=== PATIENT | male | born 1935 | race Caucasian/White ===

== ENCOUNTER → 2019-03-13 06:00 | Outpatient (REF) | payer MEDICARE, BC, SELFPAY | LOC: ANHLAB 06:00 | PROVIDERS: PCP Physician Assistant; Visit Provider Nurse Practitioner Family | DX: C44.329 Squamous cell carcinoma of skin of other parts of face (principal) | CPT/HCPCS: 88305; 88331 ==

== ENCOUNTER 2019-09-19 09:40 | Outpatient (CLI) | payer MEDICARE, BC, SELFPAY ==
--- NOTE | ~2019-09-19 | NM_ITS ---
EXAMINATION: NM bone scan whole body DATE: 09/19/2019 12:37 INDICATION: Secondary malignant neoplasm of bone TECHNIQUE: 24.9 mCi Tc-99m HDP was administered intravenously. Delayed whole-body scintigrams were o btained. COMPARISON: Bone scan and CT scan abdomen and pelvis dated 07/27/2018 FINDINGS: No significant interval change in scattered foci of FDG uptake in the thoracic and lumbar spine with large region of increased FDG uptake at the left innominate bone in the ischial and acetabular region s corresponding to multiple mixed lytic and sclerotic bone lesions on prior CT consistent with metast atic disease. Significant decrease in the previously intense uptake associated with a previously suba cute fracture at the anterior left fifth rib. Nearly imperceptible uptake associated with a sclerotic bone lesion at the right femoral neck. Unchanged small focus of increased uptake at the right first or second toes which given location is more likely degenerative in etiology. No new lesions or lesion s with interval significant increase in degree of uptake. IMPRESSION: 1. Stable appearance of multiple lesions with increased uptake in the axial and appendicular skeleton consistent with treated metastatic disease. No evident new or progressive disease. Reviewed, dictated and finalized at location A. IMPRESSION: 1. Stable appearance of multiple lesions with increased uptake in the axial and appendicular skeleton consistent with treated metastatic disease. No evident n ew or progressive disease.
== END 2019-09-19 09:41 | disposition home or self-care (01) ==
PROVIDERS: PCP Physician Assistant; Visit Provider Internal Medicine Hematology & Oncology
DX: C79.51 Secondary malignant neoplasm of bone (principal)
CPT/HCPCS: 78306; A9561

== ENCOUNTER 2020-03-14 17:27 | Inpatient (IN) | payer MEDICARE, BC, SELFPAY ==
[2020-03-14] VITALS (10 sets, daily range): BP systolic 102–125; BP diastolic 68–99; PULSE 62–145; RESP 20–42; TEMP 36.6–37.2; O2SAT 90–95; BMI 23.6
--- NOTE | ~2020-03-14 | CT_ITS ---
EXAMINATION: CT thoracic lumbar wo con EXAM DATE: 03/14/2020 19:06 INDICATION: low back pain, h/o metastatic prostate cancer TECHNIQUE: Spiral CT thoracolumbar spine was performed without contrast. Axial, coronal and sagittal images of the thoracic spine were reviewed. Axial, coronal and sagittal images of the lumbar spine we re reviewed. The dose-length product (DLP) for this examination was 1886.53 mGy-cm. The exposure was tailored according to patient size (auto mA exposure control), and iterative reconstruction (ASIR) w as used as additional dose reduction technique. Correlation is made to lumbar spine MRI 01/27/2018. FINDINGS: THORACIC SPINE: There is scattered osteoblastic disease. Moderate sized thoracic endplate osteophytes , mild to moderate thoracic disc disease. Mild diffuse loss of vertebral body heights. No acute fract ure line identified. No osseous stenosis of the thoracic spinal canal. No evidence of extraosseous ex tension of metastatic disease. Mild diffuse thoracic facet arthropathy. Paraspinal soft tissue is unr emarkable. Bilateral groundglass opacities, could be edema and/or infection. COVID-19 should be exclu ded. LUMBAR SPINE: Scattered osteoblastic disease. There is no evidence of acute lumbar fracture. There is no disc space widening or traumatic vertebral body subluxation suspected. Paraspinal soft tissue is unremarkable. Moderate disc disease at L3-4, mild to moderate at the other lumbar levels. Mild ch ronic appearing compression fractures at L1 and L2. Moderate to severe L4-5 facet arthropathy with 4 mm anterolisthesis at this level. Less arthropathy at the other levels. There is 3 mm retrolisthesis L3 on L4. Mass contiguous to the right internal iliac artery most likely thrombosed aneurysm, correla te with CT abdomen same date. A detailed level by level evaluation of spondylosis can be added as add endum if requested. IMPRESSION: 1. Moderate amount of scattered groundglass opacities, could be acute infection or edema. Clinical c orrelation, recommend excluding COVID-19. 2. Extensive thoracolumbar osteoblastic disease. 3. No acute thoracolumbar findings. Reviewed, dictated and finalized at location A. TRAINER IMPRESSION: 1. Moderate amount of scattered groundglass opacities, could be acute infectio n or edema. Clinical correlation, recommend excluding COVID-19. 2. Extensive thoracolumbar osteoblastic disease. 3. No acute thoracolumbar findings.
--- NOTE | ~2020-03-14 | CT_ITS ---
EXAMINATION: CT brain wo con EXAM DATE: 03/14/2020 19:06 INDICATION: Fever, altered mental status. Metastatic prostate cancer. Low back pain, flank pain. TECHNIQUE: Spiral CT of the head was performed without contrast. Axial, coronal and sagittal images were reviewed. The dose-length product (DLP) for this examination was 681.00 mGy-cm. The exposure w as tailored according to patient size, and iterative reconstruction (ASIR) was used as additional dos e reduction technique. There is no prior study for comparison. FINDINGS: There is no acute intraparenchymal hemorrhage. No evidence of intraparenchymal brain mass lesion. No evidence of acute infarction. Please note that initial head CT has limited sensitivity f or small or acute infarctions. There is mild to moderate periventricular and subcortical hypodensity, nonspecific but probably related to small vessel ischemic disease. There is moderate prominence of the sulci and ventricles related to cerebral atrophy. There is intracranial carotid arterioscleros is. There are no extra-axial collections. There is no mass effect or midline shift. The orbits are unremarkable. Soft tissue is unremarkable. The visualized sinuses and mastoid air cells are well a erated. IMPRESSION: 1. No acute intracranial findings. 2. Chronic age related findings. Reviewed, dictated and finalized at location A. ON BAG SEWER
--- NOTE | ~2020-03-14 | CT_ITS ---
EXAMINATION: CT abdomen pelvis w con EXAM DATE: 03/14/2020 19:06 INDICATION: Flank pain and fever TECHNIQUE: Spiral CT of the abdomen and pelvis was performed following intravenous injection of 100 m L Omnipaque 350. Axial, coronal and sagittal images were reviewed. The dose-length product (DLP) fo r this examination was 1174.83 mGy-cm. The exposure was tailored according to patient size (auto mA exposure control), and iterative reconstruction (ASIR) was used as additional dose reduction techniqu e. Comparison is made to prior examination from 07/27/2018. FINDINGS: There is 2 cm left liver lobe cyst. The liver, spleen, adrenal glands and pancreas are unr emarkable. Gallbladder is unremarkable. No biliary obstruction. Portal and splenic veins are paten t. Kidneys enhance symmetrically. There is no hydronephrosis. Patient has likely had prostatectom y. The bladder is unremarkable. There is no retroperitoneal or pelvic lymphadenopathy. There is moderate scattered arteriosclerotic disease. In the right side of the pelvis contiguous with the inte rnal iliac artery is well-circumscribed heterogeneous masslike region measuring 3.2 cm, unchanged com pared to prior study and most likely a thrombosed aneurysm. Moderate scattered aortoiliac arterial sc lerosis. The appendix is normal. There is small sliding gastroesophageal hiatal hernia. There is moderate sig moid predominant colonic diverticulosis. There is no adjacent inflammatory change to suggest diverti culitis. No free intraperitoneal gas. The heart is normal in size. There are no pericardial or pl eural effusions. Moderate amount of posterior dependent predominant groundglass airspace disease cou ld be infection and/or edema. Clinical correlation. Rather extensive osteoblastic disease without ac [place] fracture suspected. IMPRESSION: 1. Dependent predominant moderate groundglass lung opacities likely infection or edema. Clinical cor relation. Recommend excluding COVID-19. 2. Stable right internal iliac artery aneurysm. 3. Moderate colonic diverticulosis. 4. Small hiatal hernia. 5. Osteoblastic disease. 6. No acute intra-abdominal findings. Reviewed, dictated and finalized at location A. RITY SYSTEMS ENGINEER IMPRESSION: 1. Dependent predominant moderate groundglass lung opacities likely infection or edema. Clinical correlation. Recommend excluding COVID-19. 2. Stable right internal iliac artery aneurysm. 3. Moderate colonic diverticulosis. 4. Small hiatal hernia. 5. Osteoblastic disease. 6. No acute intra-abdominal findings.
--- NOTE | ~2020-03-14 | XR_ITS ---
EXAMINATION: XR chest 2V EXAM DATE: 03/14/2020 19:11 INDICATION: increased weakness X 1 WK,NO HX. TECHNIQUE: Frontal and lateral projections of the chest obtained and reviewed. Comparison is made to prior examination from 05/28/2004. FINDINGS: Moderate amount of bilateral acute airspace disease, could be infection and/or edema. Plea se clinically correlate. The cardiomediastinal silhouette is prominent but magnified on this AP techn ique. There is no pneumothorax suspected. There are no pleural effusions. Scattered osteoblastic di sease. IMPRESSION: Moderate amount of bilateral infection and/or edema, clinical correlation. Reviewed, dictated and finalized at location A. DIRECTOR IMPRESSION: Moderate amount of bilateral infection and/or edema, clinical sonya elation.
--- NOTE | 2020-03-14 18:00 | ECG_ITS ---
Measurements Intervals [place] Rate: 139 P: ID: 0 QRS: -11 QRSD: 206 T: 120 QT: 309 QTc: 471 Interpretive Statements SINUS OR ECTOPIC ATRIAL TACHYCARDIA VENTRICULAR BIGEMINY INCOMPLETE RIGHT BUNDLE BRANCH BLOCK ST-T WAVE ABNORMALITY IN ANTEROLATERAL LEADS- CONSIDER ISCHEMIA BASELINE ARTIFACT- III, AVF ABNORMAL ECG Electronically Signed On 03-15-2020 9:22:15 FOOTWEAR SALES REPRESENTATIVE by Rui Bucio D.O.
[2020-03-14 18:14] LABS: Hematocrit 37.8 % (42.0-52.0); Hemoglobin 13.1 g/dL (14.0-18.0); Immature Granulocyte Absolute 0.01 K/mm3 (0.00-0.031); Immature Granulocyte Percent A 0.2 % (0-0.5); Lymphocytes Absolute Auto 0.82 K/mm3 (0.9-3.2); Lymphocytes Percent Auto 17.7 % (18.3-44.2); Mean Corpuscular HGB Conc 34.7 g/dl (32-36); Mean Corpuscular Hemoglobin 32.5 pg (26-34); Mean Corpuscular Volume 93.8 fl (80-100); Mean Platelet Volume 9.8 fl (7.4-10.4); Monocytes Absolute Auto 0.3 K/mm3 (0.1-0.6); Monocytes Percent Auto 6.7 % (2.6-8.5); Neutrophils Absolute Auto 3.5 K/mm3 (1.3-6.7); Neutrophils Percent Auto 75.4 % (45.5-73.1); Platelet Count Result 145 k/mm3 (150-375); Red Blood Count 4.03 M/mm3 (4.6-6.20); White Blood Count 4.6 K/mm3 (4.5-10.0)
[2020-03-14 18:25] LABS: Alanine Aminotransferase 36 U/L (4-50); Albumin Level 3.9 g/dL (3.5-5.1); Alkaline Phosphatase 53 U/L (38-126); Anion Gap 8 mmol/L (8-16); Aspartate Amino Transferase 79 U/L (17-59); Bilirubin,Total 0.8 mg/dL (0.2-1.3); Blood Urea Nitrogen 19 mg/dL (9-20); Calcium 8.8 mg/dL (8.4-10.2); Carbon Dioxide 33 mmol/L (22-30); Chloride 93 mmol/L (98-107); Estimated CRCL calculation 60 ml/min; Estimated Glomerular Filt Rate > 60; Glucose 111 mg/dL (75-110); Potassium 3.6 mmol/L (3.4-5.0); Sodium 134 mmol/L (137-145)
--- NOTE | 2020-03-14 18:26 | ED.ARRPALP ---
HPI - Arrhythmia/Palpitations General Chief Complaint: Arrhythmia/Palpitations Stated Complaint: increasing weakness Time Seen by Provider: 03/14/20 18:02 History of Present Illness HPI narrative: 84 year old with h/o HTN, prostate cancer currently on chemotherapy who presents to the ED c/o generalized weakness, back pain, confusion. His symptoms have been worsening over about the past 6 days. He has barely been eating and today he was too weak to stand. His reports that he has chronic diarrhea with leakage and this hasn't changed. The patient denies any complaints, although he is confused and unable to provide any significant details. Related Data Home Medications Medication Instructions Recorded Confirmed abiraterone 1,000 mg PO DAILY 02/18/19 03/15/20 calcium carbonate-vitamin D3 1 tablet PO DAILY 02/18/19 03/15/20 hydrochlorothiazide 25 mg PO DAILY 02/18/19 03/15/20 lisinopril 40 mg PO DAILY 02/18/19 03/15/20 potassium chloride 20 meq PO DAILY 02/18/19 03/15/20 prednisone 5 mg PO DAILY 02/18/19 03/15/20 Allergies Allergy/AdvReac Type Severity Reaction Status Date / Time No Known Allergies Allergy Verified 03/15/20 05:31 Review of Systems Review of Systems: ROS unobtainable: Yes unobtainable due to mental status PMFSH Past Medical History Medical History H/O: HTN (hypertension) Prostate cancer Squamous cell carcinoma of skin of left cheek Family History Family History Other Acute myocardial infarction Family history of malignant neoplasm Social History Social History Smoking status: Never smoker Second hand tobacco smoke exposure: No Alcohol intake: current Drinks per week: 2 Substance use: never Substance use type: does not use Gender identity (if verbalized by the patient): Male Spiritual care concerns: No Exam Const: General: alert, confusion and ill appearing acutely and chronically HENMT: Head: no contusions Face and sinus: dry mucous membranes Eyes: Pupils: Equal, round and reactive pupils present Neck: Neck: normal visual inspection Resp: Effort & Inspection: tachypneic Auscultation: clear to auscultation bilaterally Cardio: Rate: tachycardic Rhythm: regular rhythm GI: Other: soft, nontender Skin: Rashes: no rashes Wounds: no wounds Neuro: General: patient oriented x3, moves all extremities and CN's II-XI intact bilaterally Speech: normal speech Extrem: General: normal to inspection Course Vital Signs Vital signs: Vital Signs Temperature 37.2 C 03/14/20 18:10 Pulse Rate 145 H 03/14/20 18:10 Respiratory Rate 31 H 03/14/20 18:10 Blood Pressure 106/72 03/14/20 18:10 Pulse Oximetry 95 03/14/20 18:10 Temperature 36.6 C 03/16/20 12:00 Pulse Rate 56 L 03/16/20 12:00 Respiratory Rate 18 03/16/20 12:00 Blood Pressure 148/63 H 03/16/20 12:00 Pulse Oximetry 92 03/16/20 12:00 MDM - Arrhythmia/Palpitations MDM Narrative Medical decision making narrative: Condition improving with fluids. Imaging suspicious for COVID-19. Differential Diagnosis Differential diagnosis: Likely other (sepsis, dehydration, CVA, UTI, COVID) Lab Data Attestation: I reviewed the patient's lab results. Result diagrams: 03/15/20 06:06 03/16/20 13:00 Labs: Lab Results 03/14/20 03/14/20 03/14/20 Range/Units 18:09 18:09 19:24 WBC 4.6 (4.5-10.0) K/mm3 RBC 4.03 L (4.6-6.20) M/mm3 Hgb 13.1 L (14.0-18.0) g/dL Hct 37.8 L (42.0-52.0) % MCV 93.8 (80-100) fl MCH 32.5 (26-34) pg MCHC 34.7 (32-36) g/dl RDW 13.0 (11.5-14.5) % Plt Count 145 L (150-375) k/mm3 MPV 9.8 (7.4-10.4) fl Immature Gran % (Auto) 0.2 (0-0.5) % Neut % (Auto) 75.4 H (45.5-73.1) % Lymph % (Auto) 17.7 L (18.3-44.2) % [place] % (Au
[2020-03-14] MEDS: SODIUM CHLORIDE 0.9% IV 1,000 ML 999 ML IV CONT (18:30)
--- NOTE | 2020-03-14 18:45 | PC.NURSE ---
Pt to imaging
[2020-03-14 20:07] LABS: Lactic Acid Reflex 2.1 mmol/L (0.7-2.1)
[2020-03-14 20:34] LABS: Add Urine Microscopic? YES; Appearance Urine Clear (Clear); Bilirubin Urine Negative (Negative); Blood Urine 1+ (Negative); Color Urine Straw (Yellow); Glucose Urine UA Negative (Negative); Ketones Urine Negative (Negative); Leukocyte Esterase Ur Negative LEU/UL (Negative); Nitrate Urine Negative (Negative); Protein Urine 1+ mg/dL (Negative); Urobilinogen Urine Negative mg/dL (<2.0); WBC Urine 0-3 /hpf
--- NOTE | 2020-03-14 20:41 | PM.IMHP ---
H&P: HPI History of Present Illness Date/Time: 03/14/20 20:41 Chief complaint: Sepsis, Pneumonia, Suspected COVID-19 Narrative: This is an 84 year old male with known HTN and prostate cancer currently on chemotherapy who presented to the hospital with a complaint of 6 days of generalized weakness, back pain, confusion, and decreased intake of food and fluid. His reports that he saw his PCP this past week but was already having symptoms. His family did visit him recently although none of them are sick. He currently denies any chest pain, palpitations, shortness of breath, cough, abdominal pain, fever, dysuria, hematuria, or lower extremity swelling. His reports that he has chronic diarrhea with leakage and this hasn't changed. He was initially found to be tachycardic on arrival to the ER with HR in the 130s. CT thoracic/abd/pelvis demonstrated a moderate amount of scattered groundglass opacities. CT brain was unremarkable for acute pathology. The patient denies any known COVID-19 sick contacts. His has not had any symptoms yet. The patient has not required any supplemental oxygen and was treated in the ER tonight with IV fluids, IV antibiotics and dexamethasone. We have been asked to admit the patient to the hospital for his acute dehydration. His heart rate has improved significantly with IV fluids. Review of Systems Review of Systems: All systems reviewed & are unremarkable except as noted in HPI and below PMFSH Past Medical History Medical History H/O: HTN (hypertension) Prostate cancer Squamous cell carcinoma of skin of left cheek Family History Family History Other Acute myocardial infarction Family history of malignant neoplasm Social History Social History Smoking status: Never smoker Second hand tobacco smoke exposure: No Alcohol intake: current Drinks per week: 2 Substance use: never Substance use type: does not use Gender identity (if verbalized by the patient): Male Spiritual care concerns: No Comments Past surgical history is reviewed and noncontributory. Meds Home Medications and Allergies Home Medications Medication Instructions Recorded Confirmed Type abiraterone 1,000 mg PO DAILY 02/18/19 03/15/20 History calcium carbonate-vitamin D3 1 tablet PO DAILY 02/18/19 03/15/20 History hydrochlorothiazide 25 mg PO DAILY 02/18/19 03/15/20 History lisinopril 40 mg PO DAILY 02/18/19 03/15/20 History potassium chloride 20 meq PO DAILY 02/18/19 03/15/20 History prednisone 5 mg PO DAILY 02/18/19 03/15/20 History Allergies Allergy/AdvReac Type Severity Reaction Status Date / Time No Known Allergies Allergy Verified 03/15/20 05:31 Vital Signs Vital Signs - 24 hr 03/14/20 18:10 03/14/20 18:16 03/14/20 18:18 Temperature 37.2 C Pulse Rate 145 H 136 H 126 H Respiratory Rate 31 H 42 H 33 H Blood Pressure 106/72 120/78 Pulse Oximetry 95 92 03/14/20 19:12 03/14/20 19:15 03/14/20 19:30 Temperature Pulse Rate 123 H 124 H 128 H Respiratory Rate 24 H 35 H 29 H Blood Pressure Pulse Oximetry 91 90 03/14/20 19:45 Temperature Pulse Rate 130 H Respiratory Rate 30 H Blood Pressure Pulse Oximetry Exam Const: General: cooperative, alert, awake and ill appearing Nutritional Appearance: well nourished Orientation/consciousness: oriented to person and oriented to place HENMT: Head: normal to inspection General nose exam: Normal external nose present Face and sinus: normal facial exam Mouth: Yes Normal oral and palatal mucosa present and Yes oropharynx normal Eyes: Pupils: Equal, round and reactive pupils present EOM: EOMs intact bilaterally Neck: Neck: supple and no JVD Thyroid: thyroid normal Lymphatic: lymphadenopathy not noted Resp: Effort & Inspection: tachypneic Auscu
[2020-03-14 20:45] LABS: Specific Grav Ur 1.048 (1.001-1.035)
[2020-03-14] MEDS: DEXAMETHASONE SOD PHOS INJ 4 MG/ML VIAL 6 MG IV PUSH (21:30)
[2020-03-14 22:28] LABS: Reflex Lactic Acid Yes or No Add Lactic
[2020-03-14 23:51] LABS: Lactic Acid 1.2 mmol/L (0.7-2.1)
--- NOTE | 2020-03-14 23:54 | ADMGEN ---
This patient, Malcolm Carcamo, was admitted to [facility] Surg Room 304-01 at 2305. Patient/family oriented to hospital policies and general routines including ID bracelet, bed and alarms, visiting hours, pain management, procedures, bathroom and other care routines, personal items, smoking policy, room service/diet, and visiting hours. Information on how to activate the Rapid Response Team has been discussed. Patient/Family are encouraged to report perceived risks to care and to ask questions if they do not understand what they are told or what they should do.
[2020-03-15] VITALS (9 sets, daily range): BP systolic 131–208; BP diastolic 44–97; PULSE 37–96; RESP 18–22; TEMP 36.3–37.2; O2SAT 91–98; BMI 23.6
[2020-03-15] MEDS: LACTATED RINGERS 1,000 ML 125 ML IV CONT ×2 (00:10→09:08)
--- NOTE | 2020-03-15 03:45 | PC.NURSE ---
Pt with complaints of needing to void. Attempted urinal unsuccessfully. Attempted to stand to void unsuccessfully. Ambulated with assit to the restroom to void unsuccessfully. Bladder scan done, greater than 675mls. Called dr Schaefer. Order for jovel catheter received. Attempted to place a jovel catheter unssuccessfully. Unanble to pass the catheter passed the prostate. Tool Procurement Coordinator aware. She is bringing a coude catheter for the next attempt.
[2020-03-15] MEDS: LIDOCAINE HCL 2% GEL UROJET 10 ML PKG MUCOUS MEM (06:26)
[2020-03-15 06:40] LABS: Basophils Percent Auto 0.4 % (0.2-1.2); Hematocrit 30.7 % (42.0-52.0); Hemoglobin 10.9 g/dL (14.0-18.0); Immature Granulocyte Absolute 0.01 K/mm3 (0.00-0.031); Immature Granulocyte Percent A 0.4 % (0-0.5); Lymphocytes Percent Auto 10.9 % (18.3-44.2); Mean Corpuscular HGB Conc 35.5 g/dl (32-36); Mean Corpuscular Hemoglobin 32.2 pg (26-34); Mean Corpuscular Volume 90.8 fl (80-100); Monocytes Absolute Auto 0.1 K/mm3 (0.1-0.6); Monocytes Percent Auto 5.1 % (2.6-8.5); Neutrophils Absolute Auto 2.3 K/mm3 (1.3-6.7); Neutrophils Percent Auto 83.2 % (45.5-73.1); Platelet Count Result 139 k/mm3 (150-375); Red Blood Count 3.38 M/mm3 (4.6-6.20); Red Cell Distribution Width 12.5 % (11.5-14.5); White Blood Count 2.7 K/mm3 (4.5-10.0)
[2020-03-15 07:03] LABS: Anion Gap 8 mmol/L (8-16); Blood Urea Nitrogen 16 mg/dL (9-20); Calcium 7.6 mg/dL (8.4-10.2); Carbon Dioxide 29 mmol/L (22-30); Chloride 98 mmol/L (98-107); Estimated CRCL calculation 72 ml/min; Estimated Glomerular Filt Rate > 60; Glucose 126 mg/dL (75-110); Magnesium 1.8 mg/dL (1.6-2.3); Potassium 2.9 mmol/L (3.4-5.0); Sodium 135 mmol/L (137-145)
[2020-03-15] MEDS: DEXAMETHASONE SOD PHOS INJ 4 MG/ML VIAL 6 MG IV PUSH (09:10)
[2020-03-15] MEDS: lisinopriL 20 MG TABLET 40 MG PO (12:36)
[2020-03-15] MEDS: hydroCHLOROthiazide 25 MG TABLET PO (12:36)
[2020-03-15] MEDS: POTASSIUM CHLORIDE 20 MEQ TABLET 40 MEQ PO (12:37)
--- NOTE | 2020-03-15 17:13 | PM.IMPN ---
Progress Note: A&P Assessment and Plan (1) Bilateral pneumonia: Code(s): J18.9 - Pneumonia, unspecified organism Status: Acute Assessment and Plan: -----CXR shows bilateral Pna and/or edema. Pt is coughing up sputum and is immunosupressed. He is being treated for bacterial PNA while we await his COVID results. Pt not requiring o2 at this time but will watch for signs of hypoxia. Edema seems less likely but will monitor fluid status. (2) Urinary retention: Code(s): R33.9 - Retention of urine, unspecified Status: Acute Assessment and Plan: -----Nursing staff notes pt had urinary retention. Will try and do a voiding trial in the AM (3) Generalized weakness: Code(s): R53.1 - Weakness Status: Acute Assessment and Plan: -----Pt did well with PT and OT (4) Acute dehydration: Code(s): E86.0 - Dehydration Status: Acute Assessment and Plan: -----Improved with IV fluids. (5) Suspected 2019 novel coronavirus infection: Code(s): Z20.828 - Contact with and (suspected) exposure to other viral communicable diseases Status: Acute Assessment and Plan: -----As above. (6) Chronic anemia: Code(s): D64.9 - Anemia, unspecified Status: Chronic Assessment and Plan: ------Likely multifactorial. No signs of acute blood loss. Monitor H&H, transfuse p.r.n. (7) Prostate cancer: Code(s): C61 - Malignant neoplasm of prostate Status: Chronic Assessment and Plan: -----f/u with oncology after discharge (8) H/O: HTN (hypertension): Code(s): Z86.79 - Personal history of other diseases of the circulatory system Status: Chronic Assessment and Plan: ------Last bp 139/97 Continue lisinopril hydrochlorothiazide . Time Spent With Patient Time with patient: 25 - 35 minutes Subjective Date/time seen: 03/15/20 17:13 Interval history: Pt is a 84 y/o male here for PNA. Pt was seen today and states he is still coughing up sputum but does not feel SOB. He denies CP, nausea, vomiting, fevers, chills, or leg swelling. He does not usually have a jovel at home and they put it in overnight for urine retention. Review of Systems Review of Systems: All systems reviewed & are unremarkable except as noted in HPI and below Exam Narrative: Exam Narrative: General: Well developed well nourished patient in NAD HEENT: normocephalic Neck: supple Neuro: Alert and oriented x4 CV:RRR Resp:Decreased breath sounds but ascultated with a disposable stethoscope which lowers sensativity Abd: Soft, non distended. No pain to palpation. Positive bowel sounds Extremities: No swelling, erythema, or pain to palpation. Objective Data Vital Signs Vital Signs: Vital Signs - 24 hr 03/14/20 18:10 03/14/20 18:16 03/14/20 18:18 Temperature 98.9 F Pulse Rate 145 H 136 H 126 H Respiratory Rate 31 H 42 H 33 H Blood Pressure 106/72 120/78 Pulse Oximetry 95 92 03/14/20 19:12 03/14/20 19:15 03/14/20 19:30 Temperature Pulse Rate 123 H 124 H 128 H Respiratory Rate 24 H 35 H 29 H Blood Pressure Pulse Oximetry 91 90 03/14/20 19:45 03/14/20 21:20 03/14/20 22:32 Temperature Pulse Rate 130 H 62 122 H Respiratory Rate 30 H 24 H 24 H Blood Pressure 125/99 H 104/74 Pulse Oximetry 94 92 03/14/20 22:50 03/15/20 00:00 03/15/20 03:58 Temperature 97.9 F 97.4 F L Pulse Rate 62 50 L 96 Respiratory Rate 20 18 Blood Pressure 102/68 131/71 Pulse Oximetry 93 91 03/15/20 04:00 03/15/20 08:00 03/15/20 08:09 Temperature 98.9 F Pulse Rate 59 L 37 L 56 L Respiratory Rate 18 Blood Pressure 152/44 H Pulse Oximetry 94 03/15/20 12:00 Temperature 97.7 F Pulse Rate 57 L Respiratory Rate 18 Blood Pressure 139/97 H Pulse Oximetry 98 Intake/Output Intake/Output: Intake & Output 03/12/20 03/13/20 03/14/20 03/15/20 23:59 23:59 23:59 23:59
[2020-03-15 23:54] LABS: SARS-CoV-2 RNA PCR Positive
[2020-03-16] VITALS: BP 158/72; PULSE 60; RESP 20; TEMP 36.5; O2SAT 95
[2020-03-16 00:05] VITALS: PULSE 39
[2020-03-16 04:00] VITALS: BP 160/59; PULSE 54; PULSE 55; RESP 22; TEMP 36.7; O2SAT 97
[2020-03-16 07:06] LABS: Alanine Aminotransferase 27 U/L (4-50); Alkaline Phosphatase 48 U/L (38-126); Anion Gap 6 mmol/L (8-16); Aspartate Amino Transferase 48 U/L (17-59); Bilirubin,Total 0.6 mg/dL (0.2-1.3); Blood Urea Nitrogen 15 mg/dL (9-20); Calcium 7.8 mg/dL (8.4-10.2); Carbon Dioxide 32 mmol/L (22-30); Chloride 98 mmol/L (98-107); Estimated CRCL calculation 72 ml/min; Estimated Glomerular Filt Rate > 60; Glucose 120 mg/dL (75-110); Potassium 2.9 mmol/L (3.4-5.0); Sodium 136 mmol/L (137-145)
[2020-03-16 08:00] VITALS: BP 152/66; PULSE 59; PULSE 61; RESP 20; TEMP 36.9; O2SAT 92
[2020-03-16] MEDS: DEXAMETHASONE SOD PHOS INJ 4 MG/ML VIAL 6 MG IV PUSH (08:46)
[2020-03-16] MEDS: hydroCHLOROthiazide 25 MG TABLET PO (08:46)
[2020-03-16] MEDS: lisinopriL 20 MG TABLET 40 MG PO (08:46)
[2020-03-16] MEDS: POTASSIUM CHLORIDE 20 MEQ TABLET.ER PO (08:47)
[2020-03-16 09:16] VITALS: PULSE 61; RESP 20; O2SAT 92
[2020-03-16] MEDS: POTASSIUM CHLORIDE 20 MEQ TABLET 40 MEQ PO (10:39)
[2020-03-16] MEDS: MAGNESIUM OXIDE 400 MG TABLET PO (11:24)
[2020-03-16 12:00] VITALS: BP 148/63; PULSE 56; RESP 18; TEMP 36.6; O2SAT 92
[2020-03-16 13:19] LABS: Potassium 3.7 mmol/L (3.4-5.0)
--- NOTE | 2020-03-16 15:00 | PM.DS ---
DS: Admitting Diagnosis Admitting Diagnosis Admitting Diagnosis: Sepsis, Pneumonia, Suspected COVID-19 DS: Discharge Diagnosis Discharge Diagnosis (1) COVID-19: Code(s): U07.1 - COVID-19 Status: Acute Assessment and Plan: -----patient tested positive for COVID-19 03/14/20. He never required oxygen but did receive Decadron for a few days well admitted. Chest x-ray shows bilateral pneumonia. He was educated on quarantine guidelines. He is to come back to emergency room if he feels short of breath (2) Bilateral pneumonia: Code(s): J18.9 - Pneumonia, unspecified organism Status: Acute Assessment and Plan: -----as above (3) Urinary retention: Code(s): R33.9 - Retention of urine, unspecified Status: Acute Assessment and Plan: -----resolved. Patient is urinating on his own now (4) Generalized weakness: Code(s): R53.1 - Weakness Status: Acute Assessment and Plan: ------patient did well with PT and OT. Okay to discharge home (5) Acute dehydration: Code(s): E86.0 - Dehydration Status: Acute Assessment and Plan: -----resolved (6) Chronic anemia: Code(s): D64.9 - Anemia, unspecified Status: Chronic Assessment and Plan: -----hemoglobin stable 10.9. Hemoglobin prior was likely inflated due to hemoconcentration/dehydration. No signs of acute blood loss (7) Prostate cancer: Code(s): C61 - Malignant neoplasm of prostate Status: Chronic Assessment and Plan: -----continue home medications, follow-up with urology as recommended. (8) H/O: HTN (hypertension): Code(s): Z86.79 - Personal history of other diseases of the circulatory system Status: Chronic Assessment and Plan: -----last blood pressure 148/63. Continue home meds and pain hydrochlorothiazide DS: Summary Hospital Course Reason for hospitalization: Weakness, confusion and decreased appetite Hospital Course: Patient is an 84-year-old male who was admitted for weakness, confusion decreased appetite found have COVID-19 pneumonia. He was hospitalized 2 days and never required oxygen. He worked with physical therapy and walked 80 ft without shortness of breath and was contact guard. The patient was confused at times but is alert and oriented x4 but is hard of hearing. He had issues with urinary retention which resolved throughout his stay. He also had hypokalemia which is likely from decreased appetite. The patient was eating more the day of discharge and he received oral potassium. His potassium is 3.7 at discharge and he should continue his 20 mEq he has at home. Overall, the patient had improvement and was discharged home. He was educated about the worrisome signs and symptoms come back to emergency room for and was discharged stable condition I tried to call his Abbie to speak with her about the plan of care and she did not answer. I asked the nurse to call me if she has any additional questions Status at Discharge Functional status at discharge: independent ambulation Overall status at discharge: patient is progressing back to baseline Time Spent with Patient Time attestation: Total time spent providing and/or coordinating discharge services:36 min Time spent: Greater than 30 minutes Exam Narrative: Exam Narrative: General: Well developed well nourished patient in NAD HEENT: normocephalic Neck: supple Neuro: Alert and oriented x4 CV:RRR Resp: Mild cracking with Decreased breath sounds but auscultated with a disposable stethoscope which lowers sensitivity Abd: Soft, non distended. No pain to palpation. Positive bowel sounds Extremities: No swelling, erythema, or pain to palpation. DS: Data Data Completed and Pending Labs on day of discharge: Labs from last 24 hours 03/16/20 03/16/20 03/14/20 13:00 06:42 22:27 Sodium 136 L Potassium 3.
--- NOTE | 2020-03-23 13:11 | PC.NURSE ---
Sputum cx- normal carmen.
--- NOTE | 2020-04-07 12:33 | PC.NURSE ---
Blood cx are negative.
== END 2020-03-16 15:45 | disposition home or self-care (01) | DRG 177 ==
LOC: ANHED 20:08 → ANH3MEDSUR 22:10
PROVIDERS: Emergency Medicine; Physician Assistant; Admitting Provider Family Medicine; Emergency Provider Emergency Medicine; PCP Physician Assistant; Visit Provider Student in an Organized Health Care Education/Training Program
DX: U07.1 COVID-19 (principal); J12.89 Other viral pneumonia; C61 Malignant neoplasm of prostate; R33.9 Retention of urine, unspecified; E86.0 Dehydration; D64.9 Anemia, unspecified; I10 Essential (primary) hypertension; R53.1 Weakness; Z79.899 Other long term (current) drug therapy
CPT/HCPCS: 36415; 51701; 70450; 71046; 72128; 72131; 74177; 80048; 80053; 81001; 83605; 83735; 84132; 84153; 85025; 87040; 87070; 87205; 87635; 87804; 93005; 96361; 97110; 97116; 97161; 97165; 97530; 97535; A9270; C9803; G0378; J0696; J1100; J1956; J7030; J7120; Q9967; U0003

== ENCOUNTER 2021-09-08 11:20 | Outpatient (CLI) | payer MEDICARE, BC, SELFPAY ==
--- NOTE | ~2021-09-08 | DEXA_ITS ---
Bone Density Report Name: ANDRZEJ JAIN V Age: 85 Sex: Male Ethnicity: White Date of : 1935 Indication: screening for osteoporosis; prior fracture; cancer; Referring Provider: KEILY LARSON Study: Bone densitometry was performed. Exam Date: September 08, 2021 Accession number: [id number] Bone Density: Region BMD T-score Z-score Classification AP Spine(L1, L3, L4) 1.439 3.2 4.5 Normal Femoral Neck (Left) 0.913 -0.1 1.6 Normal Total Hip (Left) 1.207 1.2 2.4 Normal Femoral Neck (Right) 1.170 1.8 3.5 Normal Total Hip (Right) 1.214 1.2 2.5 Normal Total Hip Mean 1.211 1.2 2.5 Normal World Health Organization criteria for BMD impression classify patients as: Normal (T-score at or above -1.0), Osteopenia (T-score between -1.0 and -2.5), or Osteoporosis (T-score at or below -2.5). 10-year Fracture Risk: FRAX not reported because: All T-scores for Spine Total, Hip Total, Femoral Neck at or above -1.0 Clinical Information Provided by Patient: Has had a low trauma fracture Has used the following medications: Prolia (i.e. denosumab), Calcium Has the following medical conditions: Cancer Patient maximum height was 66 No regular weight bearing exercise Drinks caffeinated beverages Impression: The patient has normal bone mass. The patient has risk factors, including: previous fracture. Discussion: BONE DENSITY IS ABOVE THE MINIMUM DESIRABLE LEVEL AT ALL SKELETAL SITES TESTED. This patient?s bone mineral density is above the minimum desirable level (T-score -1.0 or better) at all sites measured. The patient should follow a healthful lifestyle (good nutrition with adequate calcium and vitamin D, and appropriate weight-bearing exercise). Follow-Up: Consider repeating this study in 5 years or sooner if there is some new clinical indication. Reported by: LYNN on 09/08/2021 1:54:00 PM. Reviewed, dictated and finalized at location [facility]
== END 2021-09-08 11:21 | disposition home or self-care (01) ==
LOC: ANHIMG 11:21
PROVIDERS: PCP Physician Assistant; Visit Provider Internal Medicine Hematology & Oncology
DX: M85.89 Other specified disorders of bone density and structure, multiple sites (principal)
CPT/HCPCS: 77080

== ENCOUNTER → 2021-10-05 09:19 | Outpatient (REF) | payer MEDICARE, BC, SELFPAY | LOC: ANHLAB 09:19 | PROVIDERS: PCP Physician Assistant; Visit Provider Nurse Practitioner | DX: D48.5 Neoplasm of uncertain behavior of skin (principal); C44.321 Squamous cell carcinoma of skin of nose; C44.329 Squamous cell carcinoma of skin of other parts of face | CPT/HCPCS: 88305; 88342 ==

== ENCOUNTER → 2021-12-20 07:58 | Outpatient (REF) | payer MEDICARE, BC, SELFPAY | LOC: ANHLAB 07:58 | PROVIDERS: PCP Physician Assistant; Visit Provider Surgery Plastic and Reconstructive Surgery | DX: C44.321 Squamous cell carcinoma of skin of nose (principal); C44.329 Squamous cell carcinoma of skin of other parts of face; D48.1 Neoplasm of uncertain behavior of connective and other soft tissue | CPT/HCPCS: 88305; 88331; 88332 ==

== ENCOUNTER 2021-12-30 08:12 | Outpatient (CLI) | payer MEDICARE, BC, SELFPAY ==
--- NOTE | ~2021-12-30 | NM_ITS ---
EXAMINATION: NM bone scan whole body DATE: 12/30/2021 13:21 INDICATION: Prostate cancer metastatic to bone TECHNIQUE: 25.7 mCi Tc-99m HDP was administered intravenously. Delayed whole-body scintigrams were o btained. COMPARISON: Bone scan dated 09/19/[address] abdomen and pelvis dated 03/14/2020 There are no more re cent relevant imaging studies at our institution. FINDINGS: Again seen are regions of increased uptake corresponding to mixed lytic and sclerotic bone lesions mo st prominent at the left ischial and acetabulum, right pubic body, right femoral neck, right and cent ral portions of the sacrum and involving multiple thoracic and lumbar vertebral bodies. Densities lik deandre degenerative joint centered uptake at the bilateral shoulders. This is now more prominent on the right which likely reflects degenerative remodeling of the acromion and humeral head with narrowing o f the subacromial space consistent with a right rotator cuff tear evident on the prior radiographs. A dditional mild likely degenerative joint centered and a few bilateral toes. No other new foci of abno rmal bone uptake to suggest progression of metastatic disease. IMPRESSION: 1. Interval increase in uptake throughout the right shoulder which likely reflects progression of rig ht rotator cuff arthropathy. Could consider right shoulder radiographs for confirmation and to exclud e any new lytic/blastic bone lesion. 2. Relatively stable appearance of increased uptake associated with multiple mixed lytic and blastic bone lesions in the pelvis and spine consistent with metastatic prostate cancer. No other new lesions suspicious for metastatic disease. Reviewed, dictated and finalized at location A. IMPRESSION: 1. Interval increase in uptake throughout the right shoulder which likely refle cts progression of right rotator cuff arthropathy. Could consider right shoulde r radiographs for confirmation and to exclude any new lytic/blastic bone lesion . 2. Relatively stable appearance of increased uptake associated with multiple mi xed lytic and blastic bone lesions in the pelvis and spine consistent with meta static prostate cancer. No other new lesions suspicious for metastatic disease.
== END 2021-12-30 08:13 | disposition home or self-care (01) ==
PROVIDERS: PCP Physician Assistant; Visit Provider Internal Medicine Hematology & Oncology
DX: C61 Malignant neoplasm of prostate (principal); C79.51 Secondary malignant neoplasm of bone
CPT/HCPCS: 78306; A9561

== ENCOUNTER 2022-03-21 15:14 | Emergency (ER) | payer MEDICARE, BC, SELFPAY ==
[2022-03-21 15:31] VITALS: BP 144/61; PULSE 69; RESP 18; TEMP 36.1; O2SAT 100
--- NOTE | 2022-03-21 16:02 | ED.DENTAL ---
HPI - Dental/Oral General Chief complaint: Dental/Oral Stated complaint: foreign object logged between tooth Time Seen by Provider: 03/21/22 16:02 Source: patient Mode of arrival: ambulatory History of Present Illness HPI Narrative: 86-year-old male presented for complaints of possible foreign object lodged between the left upper teeth for 2 days. He states he was eating popcorn when he developed this sensation. He is concerned there is a piece of popcorn stuck between the teeth and the gum. He does not have a dentist. He denies pain, swelling or drainage to the gums. He has a broken tooth at this site which is been broken for quite a while he states. Related Data Home Medications Medication Instructions Recorded Confirmed calcium carbonate 500 mg-vitamin 1 tablet PO DAILY 02/18/19 02/17/22 D3 5 mcg (200 unit) tablet lisinopril 20 mg tablet 40 mg PO DAILY 02/18/19 02/17/22 potassium chloride 20 mEq 20 meq PO DAILY 02/18/19 02/17/22 tablet,extended release Allergies Allergy/AdvReac Type Severity Reaction Status Date / Time No Known Allergies Allergy Verified 12/27/21 11:46 Review of Systems Review of Systems: CONSTITUTIONAL: Denies body aches, fever, chills ENT: Denies rhinorrhea, congestion, sore throat, or otalgia. Reports dental fb sensation CARDIOVASCULAR: Denies chest pain, palpitations RESPIRATORY: Denies cough or dyspnea. SKIN: Denies rash, itching, or wounds. MUSCULOSKELETAL: Denies myalgia. NEUROLOGIC: Denies headache, numbness, tingling, or weakness. FOR[facility]LY [facility], [facility] Past Medical History Medical History H/O: HTN (hypertension) Prostate cancer Squamous cell carcinoma of skin of left cheek Family History Family History Other Acute myocardial infarction Family history of malignant neoplasm Social History Social History Smoking status: Never smoker Second hand tobacco smoke exposure: No Alcohol intake: current Drinks per week: 2 Substance use: never Substance use type: does not use Gender identity (if verbalized by the patient): Male Spiritual care concerns: No Comments At time of signature, I have reviewed and agree with nursing past medical, surgical, social and family history unless otherwise noted. Please see nursing chart for further information. There is no relevant family history pertinent to the presenting complaint Exam Narrative: GENERAL: well appearing; no acute distress. HEAD: Normocephalic, atraumatic. EYES: EOMI. No redness or drainage. Conjunctivae normal. ENT: Dental fb sensation location of #12 and 13, both are broken without gum swelling or apparent abscess formation, no FB noted on exam. Mucous membranes pink and moist. CHEST: No respiratory distress. Clear to auscultation. HEART: Regular rate and rhythm. No murmur appreciated. SKIN: Warm, dry, no rash. Normal skin turgor. NEURO: Alert Gait steady. Course Course Emergency Course: Patient is aware of diagnosis, understands and agrees to treatment plan. Anticipatory guidance given. Patient agrees to follow-up as directed and is aware of reasons to seek care at the emergency department. Portions of this record may have been created with voice recognition software Level of Care: Express Care Visit Vital Signs Vital signs: Vital Signs Temperature 97.0 F L 03/21/22 15:31 Pulse Rate 69 03/21/22 15:31 Respiratory Rate 18 03/21/22 15:31 Blood Pressure 144/61 H 03/21/22 15:31 Pulse Oximetry 100 03/21/22 15:31 Oxygen Delivery Room Air 03/21/22 15:31 Temperature 97.0 F L 03/21/22 15:31 Pulse Rate 69 03/21/22 15:31 Respiratory Rate 18 03/21/22 15:31 Blood Pressure 144/61 H 03/21/22 15:31 Pulse Oximetry 100 03/21/22 15:31 Oxygen Delivery Room Air 03/21/22 15:31 MDM - Dental/Ora
== END 2022-03-21 16:28 | disposition home or self-care (01) ==
PROVIDERS: Emergency Provider Nurse Practitioner Family; PCP Physician Assistant
DX: S02.5XXA Fracture of tooth (traumatic), initial encounter for closed fracture (principal); X58.XXXA Exposure to other specified factors, initial encounter; I10 Essential (primary) hypertension; Z85.46 Personal history of malignant neoplasm of prostate; Z85.828 Personal history of other malignant neoplasm of skin
CPT/HCPCS: 99211; G0463

== ENCOUNTER 2022-08-29 10:38 | Outpatient (CLI) | payer MEDICARE, BC, SELFPAY ==
--- NOTE | ~2022-08-29 | NM_ITS ---
Whole-body bone scan: History: Prostate cancer. Radiopharmaceutical: 23.6 mCi of technetium 99m MDP was administered intravenously. COMPARISON: 12/30/2021 Procedure: Three hour delayed anterior and posterior whole-body bone scan was performed. Findings: There is extensive degenerative uptake in the bilateral shoulder girdle regions, right wors e than left. There is suggestion of new focal uptake in the right calvarium. Stable areas of subtle u ptake are present in the pelvis and spine, most notably left ischium, and midthoracic spine. Impression: New/more conspicuous area of uptake in the right calvarium, which could reflect a new/progressing met astasis. Otherwise stable metastatic uptake in the spine and pelvis. Degenerative uptake at both shoulders, right worse than left. Reviewed, dictated and finalized at [facility]. Impression: New/more conspicuous area of uptake in the right calvarium, which could reflect a new/progressing metastasis. Otherwise stable metastatic uptake in the spine and pelvis. Degenerative uptake at both shoulders, right worse than left.
== END 2022-08-29 10:39 | disposition home or self-care (01) ==
PROVIDERS: PCP Physician Assistant; Visit Provider Internal Medicine Hematology & Oncology
DX: C61 Malignant neoplasm of prostate (principal); C79.51 Secondary malignant neoplasm of bone
CPT/HCPCS: 78306; A9503

== ENCOUNTER 2022-08-30 12:31 | Outpatient (CLI) | payer MEDICARE, BC, SELFPAY ==
--- NOTE | ~2022-08-30 | PE_ITS ---
EXAMINATION: PET_PETPSMAST_PT DATE: 08/31/2022 07:23 INDICATION: Prostate cancer metastatic to bone. TECHNIQUE: 9.174 mCi of piflufolastat F-18 was administered intravenously. Low dose computed tomograp hy (CT) images were acquired from the base of the brain to the proximal thighs for attenuation correc tion and anatomic localization. Automated exposure control was employed. Dose-length product (DLP) wa s 650 mGy-cm. Positron emission tomography (PET) images were acquired in the same distribution. COMPARISON: Bone scan 08/29/2022, CT abdomen and pelvis 03/14/2020, head CT 03/14/2020 FINDINGS: Head/neck: There are no pathologically enlarged lymph nodes.. The area of the increased activity in t he superior skull on the recent bone scan was not included. Chest: Calcified pulmonary nodules and calcified mediastinal lymph nodes are consistent with old gran ulomatous disease. There are calcified pleural plaques on the left. No pleural effusion. Cardiomegaly is noted. There are coronary artery calcifications. No pericardial effusion. There are no pathologic ally enlarged lymph nodes. There is a small sliding hiatal hernia. There are numerous scattered scler otic lesions of bone without increased activity. Abdomen/pelvis/proximal thighs: There is a 2.0 cm cyst in the liver. The gallbladder, spleen, pancrea s, adrenal glands, and kidneys are normal. There is calcified atherosclerosis of the aorta and many o f the other arteries. There are changes of prostatectomy. There is diverticulosis of the colon withou t evidence of diverticulitis. There are no dilated loops of bowel. The appendix is normal. 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 There are no pathologic ally enlarged lymph nodes. There is no free intraperitoneal fluid. There are numerous calcified scler otic lesions of bone without increased activity. IMPRESSION: 1. Numerous scattered sclerotic lesions of bone without increased activity with stable distribution a nd sizes from 03/14/2020, consistent with metastatic disease. 2. The area of increased activity in the superior skull on the bone scan from 08/29/22 was not included . This finding was worsened from the bone scan from 12/30/[address] correlate on 03/14/20. Reviewed, dictated and finalized at location A. IMPRESSION: 1. Numerous scattered sclerotic lesions of bone without increased activity with stable distribution and sizes from 03/14/2020, consistent with metastatic dise ase. 2. The area of increased activity in the superior skull on the bone scan from was not included. This finding was worsened from the bone scan from [address] correlate on 03/14/20.
== END 2022-08-30 12:32 | disposition home or self-care (01) ==
PROVIDERS: PCP Physician Assistant; Visit Provider Internal Medicine Hematology & Oncology
DX: C61 Malignant neoplasm of prostate (principal); C79.51 Secondary malignant neoplasm of bone
CPT/HCPCS: 78815; A9595

== ENCOUNTER 2023-01-23 10:05 | Outpatient (CLI) | payer MEDICARE, BC, SELFPAY ==
--- NOTE | ~2023-01-23 | NM_ITS ---
EXAMINATION: NM bone scan whole body DATE: 01/23/2023 13:51 INDICATION: Prostate cancer metastatic to bone TECHNIQUE: 24.7 mCi Tc-99m HDP was administered intravenously. Delayed whole-body scintigrams were o btained. COMPARISON: Bone scan dated 08/29/2022 and PSMA PET study dated 08/30/2022. FINDINGS: No interval change in multiple scattered foci of atypical bone uptake, one to the right of the vertex of the skull, lesions in the spine and a larger region in the left ischium. Corresponding sclerotic bone lesions are seen on the prior PET/CT which were without increased PSMA uptake at that time consi stent with treated metastatic prostate cancer. Unchanged likely degenerative joint centered uptake at the bilateral shoulders, more prominent on the right or on CT there is remodeling of the acromion an d humeral head consistent with chronic rotator cuff arthropathy. No evident new or enlarging lesions to suggest progression of disease. IMPRESSION: 1. No interval change in several scattered atypical regions of increased bone uptake in the skull, sp ine and right ischial consistent with stable as a disease. No new or enlarging lesions to suggest pro gression of disease. 2. Stable appearance of likely degenerative uptake at the bilateral shoulders, right greater than lef t. Reviewed, dictated and finalized at location A. IMPRESSION: 1. No interval change in several scattered atypical regions of increased bone u ptake in the skull, spine and right ischial consistent with stable as a disease . No new or enlarging lesions to suggest progression of disease. 2. Stable appearance of likely degenerative uptake at the bilateral shoulders, right greater than left.
== END 2023-01-23 10:06 | disposition home or self-care (01) ==
PROVIDERS: PCP Physician Assistant; Visit Provider Internal Medicine Hematology & Oncology
DX: C61 Malignant neoplasm of prostate (principal); C79.51 Secondary malignant neoplasm of bone
CPT/HCPCS: 78306; A9503

== ENCOUNTER 2023-11-29 18:23 | Emergency (ER) | payer MEDICARE, BC, SELFPAY ==
--- NOTE | ~2023-11-29 | XR_ITS ---
EXAMINATION: XR foot RT 2V DATE: 11/29/2023 19:32 INDICATION: Right great toe erythema TECHNIQUE: Dorsoplantar and lateral views of the right foot were obtained. COMPARISON: None. FINDINGS: Alignment is normal. No fracture. Soft tissue swelling about the right great toe. No cortical erosion s to suggest osteomyelitis. Mild to moderate polyarticular osteoarthritis at the first metatarsophala ngeal and a few tarsometatarsal and interphalangeal joints. Small Achilles and plantar calcaneal spur s. No soft tissue gas or radiopaque foreign bodies. IMPRESSION: 1. Soft tissue swelling about the right great toe. No soft tissue gas, radiopaque foreign bodies or o steomyelitis. 2. 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 Reviewed, dictated and finalized at location A. IMPRESSION: 1. Soft tissue swelling about the right great toe. No soft tissue gas, radiopaq ue foreign bodies or osteomyelitis. 2. 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
--- NOTE | ~2023-11-29 | CT_ITS ---
EXAMINATION: CTA chest, CTA abd aorta runoff DATE: 11/29/2023 20:36 INDICATION: Chest and abdominal pain. Diminished left dorsalis pedis pulse. TECHNIQUE: Computed tomographic angiography (CTA) of the chest, abdomen, pelvis and bilateral lower e xtremities was performed with 100 mL Omnipaque-350 intravenous contrast. Volume-rendered 3D-reconstru ctions of the aorta and large arteries were constructed by the technologist on a separate workstation . The dose-length product was mGy-cm. COMPARISON: None. FINDINGS: Chest: Mild atelectasis at the bilateral lung bases. Calcified right middle lobe nodule along with calcified mediastinal lymph nodes consistent with old granulomatous disease. No pneumonia, pulmonary edema, pl eural effusion or pneumothorax. Although not performed as a dedicated pulmonary embolism protocol the re is good contrast desiccation of the pulmonary arteries and minimal motion is essentially diagnosti c quality study demonstrating no pulmonary embolism. Heart size is normal. Atherosclerotic coronary a rtery calcifications. No pathologically enlarged thoracic lymphadenopathy. Multiple sclerotic lesions in the ribs and thoracic spine consistent with metastatic prostate cancer. Abdomen and pelvis: 2.3 cm cyst in the liver. There is diffuse hepatic steatosis with focal sparing along the gallbladder fossa. Gallbladder, spleen, bilateral adrenal glands and left kidney are normal. There are regions o f cortical atrophy at the right kidney likely sequela of prior infection or infarct. Dystrophic calci fic a cyst at the head of the pancreas likely sequela of chronic pancreatitis. Extensive scattered co lonic diverticulosis with a sigmoid and descending colon predominance but without adjacent inflammato ry change to suggest diverticulitis. Normal bowel and appendix are normal. Status post prostatectomy . Bladder is normal. No free intraperitoneal gas or fluid. No pathologically enlarged abdominal or pe lvic lymphadenopathy. There are multiple scattered sclerotic bone lesions in the lumbar spine, pelvis and proximal right femur consistent with metastatic prostate cancer. Thoracic, abdominal and pelvic arteries: Thoracic aorta is normal in caliber with no dissection. Small amount of atherosclerotic plaque withou t hemodynamically significant stenosis along the thoracic aorta and great vessels arising from the ar ch. Abdominal aorta is normal in caliber also a small amount of nonhemodynamically significant athero sclerotic plaque and no dissection or hemodynamically significant stenosis. There is a small thrombos ed penetrating atherosclerotic ulcer along the infrarenal aorta slightly cephalad to the takeoff of t he inferior mesenteric artery which measures up to 1.6 x 1.3 cm in extent and 5 mm in thickness from the intima. There is atherosclerotic plaque at the origins of the bilateral renal arteries with mild, <50% stenosis on the left and moderate 50-70% stenosis on the right. No hemodynamic significant sten osis at the celiac axis, superior mesenteric or inferior mesenteric arteries. Nonhemodynamically significant atherosclerotic plaque along the bilateral iliac arteries. 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 Right lower limb: Small amount scattered atherosclerotic plaque with minimal to mild stenosis along the right common fe moral, superficial femoral and popliteal arteries in the right tibioperoneal trunk. There is is runof f below the ankle in the anterior tibial artery. Both the right posterior tibial and peroneal arterie s are atretic with indiscernible contrast above the level of the ankles, potentially occluded however minimal amount of contrast can be seen in the tiny right posterior tibial and peroneal arteries at t he level of the ankle. Lef
--- NOTE | ~2023-11-29 | XR_ITS ---
EXAMINATION: XR chest 1V portable DATE: 11/29/2023 19:01 INDICATION: Chest pain TECHNIQUE: frontal view of the chest was obtained. COMPARISON: Chest radiograph dated 03/14/2020 FINDINGS: Lung volumes remain small. Mild left basilar opacities. Calcified nodule at the right costophrenic an gle consistent with old granulomatous disease. No pleural effusion or pneumothorax. The cardiomediast inal silhouette is within normal limits for AP technique. Right rotator cuff arthropathy the right and moderate to severe bilateral glenohumeral osteoarthritis . IMPRESSION: 1. Mild left basilar opacities which could represent atelectasis or pneumonia. Reviewed, dictated and finalized at location A.
[2023-11-29 18:23] VITALS: BP 198/81; PULSE 56; RESP 18; TEMP 36.6; O2SAT 97
--- NOTE | 2023-11-29 18:28 | ECG_ITS ---
Test Date: 2023-11-29 18:30:48 Measurements Intervals [place] Rate: 53 P: 18 IA: 255 QRS: -8 QRSD: 93 T: 3 QT: 425 QTc: 402 Interpretive Statements SINUS BRADYCARDIA WITH FIRST DEGREE AV BLOCK INCOMPLETE RIGHT BUNDLE BRANCH BLOCK BORDERLINE T WAVE ABNORMALITY- INFERIOR LEADS BASELINE ARTIFACT- I, II, AVR, AVL, AVF, V2 BORDERLINE ECG No previous ECG available for comparison Electronically Signed On 11-29-2023 20:24:37 CDT by Rui Bucio D.O.
[2023-11-29 18:51] LABS: Basophils Percent Auto 0.6 % (0.2-1.2); Eosinophils Absolute Auto 0.3 K/mm3 (0-0.3); Eosinophils Percent Auto 3.6 % (0-4.4); Hematocrit 40.2 % (42.0-52.0); Hemoglobin 12.8 g/dL (14.0-18.0); Immature Granulocyte Absolute 0.03 K/mm3 (0.00-0.031); Immature Granulocyte Percent A 0.4 % (0-0.5); Lymphocytes Absolute Auto 1.29 K/mm3 (0.9-3.2); Lymphocytes Percent Auto 18.5 % (18.3-44.2); Mean Corpuscular HGB Conc 31.8 g/dl (32-36); Mean Corpuscular Hemoglobin 30.7 pg (26-34); Mean Corpuscular Volume 96.4 fl (80-100); Mean Platelet Volume 9.1 fl (7.4-10.4); Monocytes Absolute Auto 0.5 K/mm3 (0.1-0.6); Monocytes Percent Auto 7.5 % (2.6-8.5); Neutrophils Absolute Auto 4.8 K/mm3 (1.3-6.7); Neutrophils Percent Auto 69.4 % (45.5-73.1); Platelet Count Result 215 k/mm3 (150-375); Red Blood Count 4.17 M/mm3 (4.6-6.20); Red Cell Distribution Width 14.1 % (11.5-14.5)
[2023-11-29 19:10] LABS: Alanine Aminotransferase 20 U/L (6-50); Albumin Level 4.4 g/dL (3.5-5.1); Alkaline Phosphatase 71 U/L (38-126); Anion Gap 9 mmol/L (4-12); Aspartate Amino Transferase 25 U/L (17-59); Bilirubin,Total 0.6 mg/dL (0.2-1.3); Blood Urea Nitrogen 30 mg/dL (9-20); Calcium 8.5 mg/dL (8.4-10.2); Carbon Dioxide 26 mmol/L (22-30); Chloride 100 mmol/L (98-107); Estimated CRCL calculation 47 ml/min; Estimated Glomerular Filt Rate > 60; Glucose 95 mg/dL (65-110); Lipase 61 U/L (23-300); Potassium 4.5 mmol/L (3.4-5.0); Sodium 135 mmol/L (137-145)
[2023-11-29 19:18] LABS: INR 0.9; Prothrombin Time 12.6 Seconds (11.1-14.7)
[2023-11-29 19:19] LABS: Partial Thromboplastin Time 29.5 Seconds (22.3-36.8)
[2023-11-29 19:21] LABS: Troponin I < 0.012 ng/mL (0.000-0.034)
[2023-11-29] MEDS: FAMOTIDINE 20 MG/2 ML VIAL IV PUSH (19:32)
[2023-11-29] MEDS: ACETAMINOPHEN 500 MG TABLET 1000 MG PO (19:33)
--- NOTE | 2023-11-29 19:34 | ED.CHESTPAIN ---
HPI - Chest Pain General Chief Complaint: Chest Pain Stated Complaint: chest pain Time Seen by Provider: 11/29/23 19:08 Source: patient and family Limitations: dementia History of Present Illness HPI narrative: Patient is a 88-year-old male presents to the emergency department accompanied by family with a past medical history of dementia for reported chest pain. A few hours prior to arrival patient was reportedly having chest pain and was clutching his chest seen he was going to in this resolved. Patient denies any current complaints and states that he feels well. Patient denies chest pain, shortness of breath, cough, fever, diarrhea, urinary discomfort abdominal pain, leg pain, unilateral lower extremity swelling, history of blood clots, recent injuries, recent illness, numbness, weakness. Family denies any history of heart disease in the patient. Unknown as to how long the chest pain lasted or any description of the chest pain. Patient has also been having abdominal discomfort for months that comes and goes. Patient gets home health care. Patient has been in his normal state of health as of late. Patient has a history of prostate cancer with bone metastases. notes that the patient has been seeing a director risk for chronic foot issues for which she has been cleaning them in [place] the regularly and has noticed that his right big toe seems slightly more red. Related Data Home Medications Medication Instructions Recorded Confirmed calcium carbonate 500 mg-vitamin 1 tablet PO DAILY 02/18/19 11/24/23 D3 5 mcg (200 unit) tablet Allergies Allergy/AdvReac Type Severity Reaction Status Date / Time No Known Allergies Allergy Verified 11/24/23 10:45 Review of Systems Review of Systems: A 10 system review of systems was completed on the patient and is negative except for what is stated in the HPI. Nursing and ancillary documentation was reviewed. [facility] Past Medical History Medical History History of squamous cell carcinoma Hypertension Post herpetic neuralgia Prostate cancer metastatic to bone Surgical History Surgical History History of prostatectomy 1998 History of squamous cell carcinoma excision facial cheek Family History Family History Other Acute myocardial infarction Family history of malignant neoplasm Social History Social History Smoking status: Never smoker Second hand tobacco smoke exposure: No Alcohol intake: current Drinks per week: 2 Substance use: never Substance use type: does not use Do You Feel Safe in your Home?: Yes Lack of Transportation: No Lack of Food: Never True Current Housing: I Have Housing Concerned About Future Housing: No Difficulty Paying Gas/Electric Bills: No Difficulty Paying for Meds: No Currently Unemployed: No Education: High School Diploma/GED Difficulty w/ Childcare or Family Care: No Living arrangements: with family Occupation/Education: retired Gender identity (if verbalized by the patient): Male Sexual Orientation (if Verbalized by the Patient): Straight or Heterosexual Spiritual care concerns: No Comments At time of signature, I have reviewed and agree with nursing past medical, surgical, social and family history unless otherwise noted. Please see the nursing chart for further information. There is no relevant family history pertinent to the presenting complaint. Exam Narrative: CONST: No acute distress. Well nourished. HENMT: Head is normocephalic and atraumatic. Moist mucous membranes. No posterior oropharynx erythema. EYES: No scleral icterus. No conjunctival injection or pallor. PERRL. NECK: No meningeal signs. RESP: Able to speak in full sentences. Normal respirato
[2023-11-29 19:52] LABS: Magnesium 2.3 mg/dL (1.6-2.3)
[2023-11-29] MEDS: CEPHALEXIN 500 MG CAPSULE PO (20:38)
[2023-11-29 21:05] VITALS: BP 130/56; PULSE 51; RESP 15; O2SAT 99
[2023-11-29 22:16] LABS: Troponin I < 0.012 ng/mL (0.000-0.034)
[2023-11-29 22:48] VITALS: BP 157/100; PULSE 47; RESP 14; O2SAT 98
[2023-11-29 23:27] VITALS: BP 160/58; PULSE 49; RESP 15; O2SAT 100
== END 2023-11-29 23:29 | disposition home or self-care (01) ==
PROVIDERS: Emergency Medicine; Emergency Provider Student in an Organized Health Care Education/Training Program; PCP Family Medicine
DX: I71.9 Aortic aneurysm of unspecified site, without rupture (principal); I73.9 Peripheral vascular disease, unspecified; R19.09 Other intra-abdominal and pelvic swelling, mass and lump; L03.031 Cellulitis of right toe; F03.90 Unspecified dementia, unspecified severity, without behavioral disturbance, psychotic disturbance, mood disturbance, and anxiety; C61 Malignant neoplasm of prostate; C79.51 Secondary malignant neoplasm of bone; I10 Essential (primary) hypertension; Z85.828 Personal history of other malignant neoplasm of skin; Z90.79 Acquired absence of other genital organ(s); Z79.899 Other long term (current) drug therapy; R00.1 Bradycardia, unspecified; I44.0 Atrioventricular block, first degree; I45.10 Unspecified right bundle-branch block; M19.071 Primary osteoarthritis, right ankle and foot
CPT/HCPCS: 36415; 71045; 71275; 73620; 75635; 80053; 83690; 83735; 84484; 85025; 85610; 85730; 93005; 96374; 99284; A9270; Q9967

== ENCOUNTER 2024-02-27 18:11 | Emergency (ER) | payer MEDICARE, BC, SELFPAY ==
--- NOTE | ~2024-02-27 | XR_ITS ---
EXAMINATION: XR chest 1V portable Exam Date/Time: 02/27/2024 20:36 CDT HISTORY: AMS Comparison: 11/29/2023. RESULT: Lines, tubes, and devices: None. Lungs and pleura: Low volumes with crowding. Streaky bibasilar opacities. Mild left costophrenic ang le blunting. Cardiomediastinal silhouette: Stable. Other: No acute osseous or upper abdominal finding. IMPRESSION: Bibasilar opacities, likely representing atelectasis given the low volumes. Infection not excluded. P ossible small left pleural effusion. Reviewed, dictated and finalized at location K. IMPRESSION: Bibasilar opacities, likely representing atelectasis given the low volumes. Inf ection not excluded. Possible small left pleural effusion.
--- NOTE | ~2024-02-27 | CT_ITS ---
EXAMINATION: CT brain wo con DATE: 02/27/2024 21:41 INDICATION: AMS . TECHNIQUE: Computed tomography (CT) of the head was performed without intravenous contrast. The mA wa s adjusted according to patient size. Iterative reconstruction technique was employed. The dose-lengt h product was 983.67 mGy-cm. COMPARISON: 03/14/2020. FINDINGS: No acute intracranial hemorrhage or extra-axial fluid collection. No hydrocephalus, mass, or herniation. No acute ischemic infarct. Unremarkable dural venous sinus attenuation. No acute osseous abnormality. Frontal ethmoid and bilateral maxillary mucosal thickening. Small retention cyst or polyp in the righ t maxillary sinus. The remaining aerated spaces are clear. Moderate atrophy and mild chronic white matter change. Atherosclerotic intracranial calcification. IMPRESSION: No acute intracranial process. Reviewed, dictated and finalized at location K.
[2024-02-27 18:24] VITALS: BP 123/73; PULSE 65; RESP 16; TEMP 36.8; O2SAT 95
[2024-02-27 18:41] LABS: Basophils Percent Auto 0.7 % (0.2-1.2); Eosinophils Absolute Auto 0.2 K/mm3 (0-0.3); Hematocrit 35.3 % (42.0-52.0); Hemoglobin 11.8 g/dL (14.0-18.0); Immature Granulocyte Absolute 0.01 K/mm3 (0.00-0.031); Immature Granulocyte Percent A 0.2 % (0-0.5); Lymphocytes Absolute Auto 1.11 K/mm3 (0.9-3.2); Lymphocytes Percent Auto 18.6 % (18.3-44.2); Mean Corpuscular HGB Conc 33.4 g/dl (32-36); Mean Corpuscular Hemoglobin 30.9 pg (26-34); Mean Corpuscular Volume 92.4 fl (80-100); Mean Platelet Volume 9.4 fl (7.4-10.4); Monocytes Absolute Auto 0.5 K/mm3 (0.1-0.6); Monocytes Percent Auto 9.1 % (2.6-8.5); Neutrophils Percent Auto 67.4 % (45.5-73.1); Platelet Count Result 281 k/mm3 (150-375); Red Blood Count 3.82 M/mm3 (4.6-6.20); Red Cell Distribution Width 13.7 % (11.5-14.5)
[2024-02-27 19:12] LABS: Prothrombin Time 13.5 Seconds (11.1-14.7)
[2024-02-27 19:14] VITALS: RESP 16; O2SAT 97
[2024-02-27 19:14] LABS: Partial Thromboplastin Time 31.5 Seconds (22.3-36.8)
[2024-02-27 19:22] LABS: Alanine Aminotransferase 16 U/L (6-50); Albumin Level 4.1 g/dL (3.5-5.1); Alkaline Phosphatase 66 U/L (38-126); Anion Gap 10 mmol/L (4-12); Aspartate Amino Transferase 22 U/L (17-59); Bilirubin,Total 0.4 mg/dL (0.2-1.3); Blood Urea Nitrogen 36 mg/dL (9-20); Carbon Dioxide 24 mmol/L (22-30); Chloride 101 mmol/L (98-107); Estimated CRCL calculation 51 ml/min; Estimated Glomerular Filt Rate > 60; Glucose 102 mg/dL (65-110); Potassium 4.4 mmol/L (3.4-5.0); Sodium 135 mmol/L (137-145)
[2024-02-27 19:39] VITALS: BP 145/70; PULSE 62; RESP 20; O2SAT 95
--- NOTE | 2024-02-27 20:18 | ED.GENADULT ---
HPI - General Adult General Chief complaint: Unspecified Stated complaint: Weakness, leaning to right Time Seen by Provider: 02/27/24 19:34 History of Present Illness HPI narrative: 88-year-old male with a history of Alzheimer's, metastatic prostate cancer presenting with altered mental status. His is at bedside and helps with the history. They resided adding to in place. Today he was noted to be leaning towards the right. States that this has happened in the past and it seems to just go away. He has otherwise not been complaining of anything. States that he has had a poor appetite for many months and he eats and drinks very little. Related Data Home Medications Medication Instructions Recorded Confirmed calcium 500 mg (as 1 tablet PO DAILY 02/18/19 11/24/23 carbonate)-vitamin D3 5 mcg (200 unit) tablet potassium chloride 20 mEq 20 meq PO BID 01/24/24 tablet,extended release(part/cryst) (Klor-Con M) Allergies Allergy/AdvReac Type Severity Reaction Status Date / Time No Known Allergies Allergy Verified 02/29/24 08:06 Review of Systems Review of Systems: All systems reviewed & are unremarkable except as noted in HPI and below PMFSH Past Medical History Medical History History of squamous cell carcinoma Hypertension Post herpetic neuralgia Prostate cancer metastatic to bone Surgical History Surgical History History of prostatectomy 1998 History of squamous cell carcinoma excision facial cheek Family History Family History Other Acute myocardial infarction Family history of malignant neoplasm Social History Social History (System 02/29/24 @ 08:06 by Ab Soto) Smoking status: Never smoker Second hand tobacco smoke exposure: No Alcohol intake: current Drinks per week: 2 Substance use: never Substance use type: does not use Do You Feel Safe in your Home?: Yes Lack of Transportation: No Lack of Food: Never True Current Housing: I Have Housing Concerned About Future Housing: No Difficulty Paying Gas/Electric Bills: No Difficulty Paying for Meds: No Currently Unemployed: No Education: High School Diploma/GED Difficulty w/ Childcare or Family Care: No Living arrangements: with family Occupation/Education: retired Gender identity (if verbalized by the patient): Male Sexual Orientation (if Verbalized by the Patient): Straight or Heterosexual Spiritual care concerns: No Exam Narrative: GENERAL: Chronically ill-appearing male sitting in bed in no acute distress HEAD: Normocephalic, atraumatic. EYES: PERRLA and EOMI. ENT: grossly unremarkable NECK: Supple. CHEST: Clear to auscultation. No respiratory distress. HEART: Regular rate and rhythm ABDOMEN: Soft, nontender, nondistended EXTREMITIES: no edema SKIN: Warm, dry, no rash. NEURO: Alert and oriented x0. PSYCH: Normal mood and affect. Course Vital Signs Vital signs: Vital Signs Temperature 98.2 F 02/27/24 18:24 Pulse Rate 65 02/27/24 18:24 Respiratory Rate 16 02/27/24 18:24 Blood Pressure 123/73 02/27/24 18:24 Pulse Oximetry 95 02/27/24 18:24 Oxygen Delivery Room Air 02/27/24 18:24 Temperature 98.2 F 02/27/24 18:24 Pulse Rate 62 02/27/24 19:39 Respiratory Rate 20 02/27/24 19:39 Blood Pressure 145/70 H 02/27/24 19:39 Pulse Oximetry 95 02/27/24 19:39 Oxygen Delivery Room Air 02/27/24 18:24 Medical Decision Making MDM Narrative Medical decision making narrative: 88-year-old male presenting with potential altered mental status. Vitals are stable. Exam remarkable for the above. His family states that he was noted to be leaning to the right more than usual earlier. Workup is unremarkable. No leukocytosis. Elevated BUN:creatinine, likely dehydration given his poor PO intake. IV fluids are ongoing. UA is not infected. Chest x-ray with atelectasis, no pneumonia. CT brain without acute abnormalities. Patient is resting comfortably on my re-evaluation. His daughter is now at bedside and states that he stopped immunotherapy for his prostate cancer least a few months ago. His states that she feels he should just be left alone. I discussed extensively with the patient's family about talking with the doctor at their assisted living facility about palliative care. Patient is safe for outpatient management. Appropriate return precautions given. Discharged in stable condition. Differential Diagnosis Differential Diagnosis: Altered mental status, UTI, dehydration Medical Records Medical records reviewed: Yes I reviewed the external patient's medical records. Vital Signs Vital Signs: Vital Signs Temperature 98.2 F 02/27/24 18:24 Pulse Rate 65 02/27/24 18:24 Respiratory Rate 16 02/27/24 18:24 Blood Pressure 123/73 02/27/24 18:24 Pulse Oximetry 95 02/27/24 18:24 Oxygen Delivery Room Air 02/27/24 18:24 Temperature 98.2 F 02/27/24 18:24 Pulse Rate 62 02/27/24 19:39 Respiratory Rate 20 02/27/24 19:39 Blood Pressure 145/70 H 02/27/24 19:39 Pulse Oximetry 95 02/27/24 19:39 Oxygen Delivery Room Air 02/27/24 18:24 Lab Data Lab results reviewed: Yes I reviewed the patient's lab results. 02/27/24 18:29 02/27/24 18:57 Labs: Lab Results 02/27/24 02/27/24 02/27/24 Range/Units 18:29 18:57 21:18 WBC 6.0 (4.5-10.0) K/mm3 RBC 3.82 L (4.6-6.20) M/mm3 Hgb 11.8 L (14.0-18.0) g/dL Hct 35.3 L (42.0-52.0) % MCV 92.4 (80-100) fl MCH 30.9 (26-34) pg MCHC 33.4 (32-36) g/dl RDW 13.7 (11.5-14.5) % Plt Count 281 (150-375) k/mm3 MPV 9.4 (7.4-10.4) fl Immature Gran % (Auto) 0.2 (0-0.5) % Neut % (Auto) 67.4 (45.5-73.1) % Lymph % (Auto) 18.6 (18.3-44.2) % [place] % (Auto) 9.1 H (2.6-8.5) % Eos % (Auto) 4.0 (0-4.4) % Baso % (Auto) 0.7 (0.2-1.2) % Lymph # (Auto) 1.11 (0.9-3.2) K/mm3 [place] # (Auto) 0.5 (0.1-0.6) K/mm3 Eos # (Auto) 0.2 (0-0.3) K/mm3 Baso # (Auto) 0.0 (0.0-0.1) K/mm3 Abs Immat Gran (auto) 0.01 (0.00-0.031) K/mm3 Absolute Neuts (auto) 4.0 (1.3-6.7) K/mm3 Absolute Nucleated RBC 0.000 (0.0-0.012) K/mm3 Nucleated RBC % 0.0 (0.0-0.2) % PT 13.5 (11.1-14.7) Seconds INR 1.0 APTT 31.5 (22.3-36.8) Seconds Sodium 135 L (137-145) mmol/L Potassium 4.4 (3.4-5.0) mmol/L Chloride 101 (98-107) mmol/L Carbon Dioxide 24 (22-30) mmol/L Anion Gap 10 (4-12) mmol/L BUN 36 H (9-20) mg/dL Creatinine 0.80 (0.7-1.3) mg/dL Estim Creat Clear Calc 51 ml/min Estimated GFR > 60 (59 - ) Glucose 102 (65-110) mg/dL Calcium 9.0 (8.4-10.2) mg/dL Total Bilirubin 0.4 (0.2-1.3) mg/dL AST 22 (17-59) U/L ALT 16 (6-50) U/L Alkaline Phosphatase 66 (38-126) U/L Total Protein 7.0 (6.3-8.2) g/dL Albumin 4.1 (3.5-5.1) g/dL Urine Color Yellow (Yellow) Urine Appearance Clear (Clear) Urine pH 5.5 (5.0-9.0) Ur Specific [place] 1.022 (1.001-1.035) Urine Protein Negative (Negative) mg/dL Urine Glucose (UA) Negative (Negative) mg/dL Urine Ketones Negative (Negative) mg/dL Ur Blood (Man) Negative (Negative) Urine Nitrate Negative (Negative) Urine Bilirubin Negative (Negative) Urine Urobilinogen 0.2 (<2.0) mg/dL Leukocyte Esterase Rfl Negative (Negative) DANITA/UL Imaging Data Radiologist's impression: ITS Impressions Chest X-Ray 02/27/24 21:14 IMPRESSION: Bibasilar opacities, likely representing atelectasis given the low volumes. Infection not excluded. Possible small left pleural effusion. Head CT 02/27/24 21:58 IMPRESSION: No acute intracranial process. Critical Care Time Critical Care Time Critical Care Time: No Discharge Plan Discharge Clinical Impression: Altered mental status, Dehydration Patient Disposition: [facility] Living Condition: Stable Instructions: Antibiotic Form, Dehydration (DC), Dementia (ED) Additional Instructions: Your blood work and urine show no acute abnormalities. Your CT brain shows no acute abnormalities. Your chest x-ray shows no acute abnormalities. Please follow-up closely with the physician at your assisted living facility. You may benefit from a palliative care consult. If your symptoms worsen or other concerning symptoms arise, please return to the ER. Prescriptions: No Action calcium carbonate-vitamin D3 500 mg(1,250mg) -200 unit Tablet 1 tablet PO DAILY vitamin B complex [B Complex-Vitamin B12] Tablet 1 tablet PO DAILY Qty: 30 0RF cephalexin 500 mg capsule 500 mg PO Q6H 7 Days Qty: 28 0RF acetaminophen 500 mg tablet 500 mg PO Q6H PRN (Reason: pain) Qty: 30 0RF famotidine 20 mg tablet 20 mg PO DAILY Qty: 14 0RF aspirin 81 mg tablet,chewable 81 mg PO DAILY Qty: 30 0RF potassium chloride [Klor-Con M20] 20 mEq tablet,ER particles/crystals 20 meq PO BID quetiapine 25 mg tablet See Rx Instructions .ROUTE .COMPLEX Qty: 90 2RF Dose Instruction: TAKE 1 TABLET BY MOUTH EVERY DAY AT BEDTIME Rx Instructions: TAKE 1 TABLET BY MOUTH EVERY DAY AT BEDTIME citalopram 10 mg tablet See Rx Instructions .ROUTE .COMPLEX Qty: 90 3RF Dose Instruction: TAKE 1 TABLET BY MOUTH EVERY DAY Rx Instructions: TAKE 1 TABLET BY MOUTH EVERY DAY cephalexin 500 mg capsule 500 mg PO Q8H 7 Days Qty: 21 0RF Follow-up/Referrals: Macho Adamson MD [Primary Care Provider] -
[2024-02-27] MEDS: SODIUM CHLORIDE 0.9% IV 1,000 ML 999 ML IV CONT (20:27)
[2024-02-27 21:31] LABS: Add Urine Microscopic? NO; Appearance Urine Clear (Clear); Bilirubin Urine Negative (Negative); Blood Urine Negative (Negative); Color Urine Yellow (Yellow); Glucose Urine UA Negative (Negative); Ketones Urine Negative (Negative); Leukocyte Esterase Ur Negative LEU/UL (Negative); Nitrate Urine Negative (Negative); Protein Urine Negative (Negative); Specific Grav Ur 1.022 (1.001-1.035); Urobilinogen Urine 0.2 mg/dL (<2.0); pH Urine 5.5 (5.0-9.0)
== END 2024-02-27 23:25 ==
PROVIDERS: Emergency Provider Emergency Medicine; PCP Family Medicine
DX: R41.82 Altered mental status, unspecified (principal); E86.0 Dehydration; C61 Malignant neoplasm of prostate; C79.51 Secondary malignant neoplasm of bone; G30.9 Alzheimer's disease, unspecified; F02.80 Dementia in other diseases classified elsewhere, unspecified severity, without behavioral disturbance, psychotic disturbance, mood disturbance, and anxiety; I10 Essential (primary) hypertension; Z85.828 Personal history of other malignant neoplasm of skin; Z90.79 Acquired absence of other genital organ(s)
CPT/HCPCS: 36415; 70450; 71045; 80053; 81003; 85025; 85610; 85730; 96360; 99284; J7030

== ENCOUNTER 2024-02-28 18:11 | Emergency (ER) | payer MEDICARE, BC, SELFPAY ==
--- NOTE | ~2024-02-28 | XR_ITS ---
EXAM: XR lumbar spine 2-3V DATE: 02/28/2024 19:19 HISTORY: fall . COMPARISON: 05/08/2017. FINDINGS: 5 nonrib-bearing lumbar-type vertebral bodies. Stable grade 1 listheses at L3-4 and L4-5. Stable mild compression deformities at T12 and L1. Multilevel moderate degenerative disc disease and facet arthropathy. Atherosclerotic aortic calcification without evident aneurysm. Increasing scleroti c/osteoblastic osseous disease. No fracture or dislocation. IMPRESSION: No acute fracture or traumatic malalignment in the lumbar spine. Chronic sclerotic osseou s lesions consistent with for metastases. Reviewed, dictated and finalized at location K. IMPRESSION: No acute fracture or traumatic malalignment in the lumbar spine. Ch ronic sclerotic osseous lesions consistent with for metastases.
--- NOTE | ~2024-02-28 | XR_ITS ---
EXAM: XR hip BI 2V w AP pelvis DATE: 02/28/2024 19:19 HISTORY: fall . COMPARISON: CT abdomen pelvis 03/14/2020. FINDINGS: Normal mineralization. No fracture or dislocation. Multifocal sclerotic lesions in the pel terrance bones. Lumbar degenerative disc disease. Degenerative changes in the bilateral hips, left greater than right. Surgical clips over the pelvis. Multiple pelvic phleboliths. No erosion or periosteal ch shara. IMPRESSION: No acute osseous finding in the pelvis or bilateral hips. Multiple sclerotic osseous lesi ons consistent with metastatic disease. Reviewed, dictated and finalized at location K. IMPRESSION: No acute osseous finding in the pelvis or bilateral hips. Multiple sclerotic osseous lesions consistent with metastatic disease.
[2024-02-28 18:16] VITALS: BP 121/49; PULSE 56; RESP 16; TEMP 36.4; O2SAT 96
--- NOTE | 2024-02-28 18:46 | ED.FALL ---
HPI - Fall General Chief Complaint: Fall Stated Complaint: fall Time Seen by Provider: 02/28/24 18:32 History of Present Illness HPI Narrative: Pt suffered witnessed fall. Per pt got up and leaned over and knees gave out and he fell lnding on knees and bottom. Pt did not strike head or lose consciousness. said when they tried to get him up he said his back hurt. Related Data Home Medications Medication Instructions Recorded Confirmed calcium 500 mg (as 1 tablet PO DAILY 02/18/19 11/24/23 carbonate)-vitamin D3 5 mcg (200 unit) tablet potassium chloride 20 mEq 20 meq PO BID 01/24/24 tablet,extended release(part/cryst) (Klor-Con M) Allergies Allergy/AdvReac Type Severity Reaction Status Date / Time No Known Allergies Allergy Verified 02/27/24 19:20 Review of Systems Review of Systems: All systems reviewed & are unremarkable except as noted in HPI and below PMFSH Past Medical History Medical History History of squamous cell carcinoma Hypertension Post herpetic neuralgia Prostate cancer metastatic to bone Surgical History Surgical History History of prostatectomy 1998 History of squamous cell carcinoma excision facial cheek Family History Family History Other Acute myocardial infarction Family history of malignant neoplasm Social History Social History Smoking status: Never smoker Second hand tobacco smoke exposure: No Alcohol intake: current Drinks per week: 2 Substance use: never Substance use type: does not use Do You Feel Safe in your Home?: Yes Lack of Transportation: No Lack of Food: Never True Current Housing: I Have Housing Concerned About Future Housing: No Difficulty Paying Gas/Electric Bills: No Difficulty Paying for Meds: No Currently Unemployed: No Education: High School Diploma/GED Difficulty w/ Childcare or Family Care: No Living arrangements: with family Occupation/Education: retired Gender identity (if verbalized by the patient): Male Sexual Orientation (if Verbalized by the Patient): Straight or Heterosexual Spiritual care concerns: No Exam Const: General: healthy appearing and no acute distress Nutritional Appearance: well nourished Orientation/consciousness: patient oriented x3 Limitations: no limitations HENMT: Head: normal to inspection Eyes: Pupils: Equal, round and reactive pupils present EOM: EOMs intact bilaterally Neck: Neck: normal visual inspection and no meningeal signs Resp: Effort & Inspection: normal respiratory effort Auscultation: clear to auscultation bilaterally Cardio: Rate: regular rate Rhythm: regular rhythm GI: Auscultation: normal bowel sounds Back/Spine/Pelvis: Back: no CVA tenderness Other: no midline pain Skin: General skin exam: normal color Rashes: no rashes Wounds: no wounds Neuro: General: patient oriented x3, moves all extremities and no focal motor deficits Speech: normal speech Extrem: General: normal to inspection and no clubbing, cyanosis or edema Psych: Mental Status: mental status grossly normal Affect: normal affect Attitude: cooperative Course Vital Signs Vital signs: Vital Signs Temperature 97.6 F 02/28/24 18:16 Pulse Rate 56 L 02/28/24 18:16 Respiratory Rate 16 02/28/24 18:16 Blood Pressure 121/49 L 02/28/24 18:16 Pulse Oximetry 96 02/28/24 18:16 Oxygen Delivery Room Air 02/28/24 18:16 Temperature 97.6 F 02/28/24 18:16 Pulse Rate 56 L 02/28/24 18:16 Respiratory Rate 16 02/28/24 18:16 Blood Pressure 121/49 L 02/28/24 18:16 Pulse Oximetry 96 02/28/24 18:16 Oxygen Delivery Room Air 02/28/24 18:16 MDM - Fall MDM Narrative Medical decision making narrative: Pt suffered ground level fall and complained of low back pain when they tried to get him up. will get x rays of low back and pelvis and hips. x rays no acute fx. metastatic appearing lesions. Discharge Plan Discharge Clinical Impression: Low back pain, Prostate cancer metastatic to bone, Fall Patient Disposition: Home, Self-Care Condition: Improved Instructions: Antibiotic Form, Fall Prevention for Older Adults (ED) Prescriptions: No Action calcium carbonate-vitamin D3 500 mg(1,250mg) -200 unit Tablet 1 tablet PO DAILY vitamin B complex [B Complex-Vitamin B12] Tablet 1 tablet PO DAILY Qty: 30 0RF cephalexin 500 mg capsule 500 mg PO Q6H 7 Days Qty: 28 0RF acetaminophen 500 mg tablet 500 mg PO Q6H PRN (Reason: pain) Qty: 30 0RF famotidine 20 mg tablet 20 mg PO DAILY Qty: 14 0RF aspirin 81 mg tablet,chewable 81 mg PO DAILY Qty: 30 0RF potassium chloride [Klor-Con M20] 20 mEq tablet,ER particles/crystals 20 meq PO BID quetiapine 25 mg tablet See Rx Instructions .ROUTE .COMPLEX Qty: 90 2RF Dose Instruction: TAKE 1 TABLET BY MOUTH EVERY DAY AT BEDTIME Rx Instructions: TAKE 1 TABLET BY MOUTH EVERY DAY AT BEDTIME citalopram 10 mg tablet See Rx Instructions .ROUTE .COMPLEX Qty: 90 3RF Dose Instruction: TAKE 1 TABLET BY MOUTH EVERY DAY Rx Instructions: TAKE 1 TABLET BY MOUTH EVERY DAY cephalexin 500 mg capsule 500 mg PO Q8H 7 Days Qty: 21 0RF Follow-up/Referrals: Macho Adamson MD [Primary Care Provider] -
== END 2024-02-28 20:35 ==
PROVIDERS: Emergency Provider Emergency Medicine; PCP Family Medicine
DX: S39.92XA Unspecified injury of lower back, initial encounter (principal); C61 Malignant neoplasm of prostate; C79.51 Secondary malignant neoplasm of bone; I10 Essential (primary) hypertension; Z90.79 Acquired absence of other genital organ(s); Z85.828 Personal history of other malignant neoplasm of skin; Z79.899 Other long term (current) drug therapy; Z79.82 Long term (current) use of aspirin; W18.39XA Other fall on same level, initial encounter
CPT/HCPCS: 72100; 73521; 99284

== ENCOUNTER 2024-04-18 17:30 | Observation (INO) | payer MEDICARE, BC, SELFPAY ==
[2024-04-18 17:39] VITALS: BP 113/66; PULSE 69; RESP 26; TEMP 36.5; O2SAT 96
--- NOTE | 2024-04-18 19:08 | ED_ITS ---
HPI - General Adult General Chief complaint: Nausea/Vomiting/Diarrhea Stated complaint: N/V Time Seen by Provider: 04/18/24 18:40 History of Present Illness HPI narrative: This is an 88-year-old male with severe dementia, metastatic prostate cancer presenting for nausea and vomiting. Patient is bedbound, A&O times x0, unable to move/walk or use the restroom by himself. He is accompanied by his . He had an episode of nausea vomiting throughout the day with abdominal distention. I discussed goals of care with the family the began crying and said that he has no quality of life she has been praying that the lord will take him. Her son is also at bedside and agrees his father would never want to live this way. Patient will be made comfort measures. Related Data Home Medications ?Medication ?Instructions ?Recorded ?Confirmed ?Last Taken ?Type calcium 500 mg (as 1 tablet PO DAILY 02/18/19 11/24/23 03/14/20 History carbonate)-vitamin D3 5 mcg (200 unit) tablet potassium chloride 20 mEq 20 meq PO BID 01/24/24 Unknown History tablet,extended release(part/cryst) (Klor-Con M) Allergies Allergy/AdvReac Type Severity Reaction Status Date / Time No Known Allergies Allergy Verified 04/18/24 17:53 [facility] Past Medical History Medical History History of squamous cell carcinoma Hypertension Post herpetic neuralgia Prostate cancer metastatic to bone Surgical History Surgical History History of prostatectomy 1998 History of squamous cell carcinoma excision facial cheek Family History Family History Other Acute myocardial infarction Family history of malignant neoplasm Social History Social History (System 02/29/24 @ 08:06 by Ab Soto) Smoking status: Never smoker Second hand tobacco smoke exposure: No Alcohol intake: current Drinks per week: 2 Substance use: never Substance use type: does not use Do You Feel Safe in your Home?: Yes Lack of Transportation: No Lack of Food: Never True Current Housing: I Have Housing Concerned About Future Housing: No Difficulty Paying Gas/Electric Bills: No Difficulty Paying for Meds: No Currently Unemployed: No Education: High School Diploma/GED Difficulty w/ Childcare or Family Care: No Living arrangements: with family Occupation/Education: retired Gender identity (if verbalized by the patient): Male Sexual Orientation (if Verbalized by the Patient): Straight or Heterosexual Spiritual care concerns: No Exam Narrative: APPEARANCE: Frail, debilitated, appears chronically unwell Head: atraumatic. EYES: EOMI, NOSE: Atraumatic NECK: Trachea midline RESPIRATORY:tachynpnic,CTAB CARDIOVASCULAR: RRR, ABDOMINAL: distended, the patient grunts when he touches abdomen MUSCULOSKELETAl: No obvious deformities NEURO: Alert. moves extremities to command SKIN:: Warm, dry. Normal color Course Vital Signs Vital signs: Vital Signs Temperature 97.7 F 04/18/24 17:39 Pulse Rate 69 04/18/24 17:39 Respiratory Rate 26 H 04/18/24 17:39 Blood Pressure 113/66 04/18/24 17:39 Pulse Oximetry 96 04/18/24 17:39 Oxygen Delivery Room Air 04/18/24 17:39 Temperature 97.7 F 04/18/24 17:39 Pulse Rate 69 04/18/24 17:39 Respiratory Rate 26 H 04/18/24 17:39 Blood Pressure 113/66 04/18/24 17:39 Pulse Oximetry 96 04/18/24 17:39 Oxygen Delivery Room Air 04/18/24 17:39 Medical Decision Making MDM Narrative Medical decision making narrative: -Course: Bed-bound A&O times 0 88-year-old male with metastatic cancer and severe dementia presenting nausea vomiting abdominal distension. Goals of care were discussed with the family. Patient is comfort measures only and will be placed on hospice. Patient given pain and anxiety control. Started on a Dilaudid drip. We have contacted the patient's [place] [facility] and they were not able to provide hospice services at this time. We reached out to be [facility] and they will be able to evaluate the patient tomorrow morning at 11:00 a.m.. Patient will be admitted to the hospital. -Co-morbidities complicating care:Metastatic cancer, severe dementia -Interventions: Morphine, Ativan, glycopyrrolate -> Dilaudid drip -Shared decision making / Disposition: admitted Vital Signs Vital Signs: Vital Signs Temperature 97.7 F 04/18/24 17:39 Pulse Rate 69 04/18/24 17:39 Respiratory Rate 26 H 04/18/24 17:39 Blood Pressure 113/66 04/18/24 17:39 Pulse Oximetry 96 04/18/24 17:39 Oxygen Delivery Room Air 04/18/24 17:39 Temperature 97.7 F 04/18/24 17:39 Pulse Rate 69 04/18/24 17:39 Respiratory Rate 26 H 04/18/24 17:39 Blood Pressure 113/66 04/18/24 17:39 Pulse Oximetry 96 04/18/24 17:39 Oxygen Delivery Room Air 04/18/24 17:39 Discharge Plan Discharge Clinical Impression: Prostate cancer metastatic to bone, Dementia, End of life care Patient Disposition: Hospice [facility] Inpatient Condition: Terminal Patient Language: Serbian Prescriptions: No Action calcium carbonate-vitamin D3 500 mg(1,250mg) -200 unit Tablet 1 tablet PO DAILY vitamin B complex [B Complex-Vitamin B12] Tablet 1 tablet PO DAILY Qty: 30 0RF cephalexin 500 mg capsule 500 mg PO Q6H 7 Days Qty: 28 0RF acetaminophen 500 mg tablet 500 mg PO Q6H PRN (Reason: pain) Qty: 30 0RF famotidine 20 mg tablet 20 mg PO DAILY Qty: 14 0RF aspirin 81 mg tablet,chewable 81 mg PO DAILY Qty: 30 0RF potassium chloride [Klor-Con M20] 20 mEq tablet,ER particles/crystals 20 meq PO BID citalopram 10 mg tablet See Rx Instructions .ROUTE .COMPLEX Qty: 90 3RF Dose Instruction: TAKE 1 TABLET BY MOUTH EVERY DAY Rx Instructions: TAKE 1 TABLET BY MOUTH EVERY DAY quetiapine 25 mg tablet 25 mg PO QHS Qty: 90 2RF Follow-up/Referrals: Macho Adamson MD [Primary Care Provider] -
[2024-04-18] MEDS: GLYCOPYRROLATE INJ (*SP) 0.2 MG/ML VIAL IV PUSH (19:29)
[2024-04-18] MEDS: MORPHINE SULFATE (*CRX) 4 MG/ML INJ IV PUSH (19:29)
[2024-04-18] MEDS: LORazepam INJ (*CRX) 2 MG/ML VIAL IV PUSH (19:29)
--- NOTE | 2024-04-18 20:07 | PC.NURSE ---
AT 2006 ON 04/18/2024 [facility] CALLED BY THIS RN AT [phone] SPOKE WITH LAWSON. AFTER BEING ON HOLD FOR 20 MINUTES, I WAS THEN TRANSFERRED TO PATRICK, TEACHERS ASSISTANT. PATRICK TOOK PT'S INFO AND SAID THAT SHE HAD NO ONE AVAILABLE TONIGHT TO COME OUT. PATRICK INSTRUCTED ON WHAT TO FAX TO THEM AT [phone] AND THEY WOULD BE OUT AT 0900 ON 04/19/2024 TO ASSESS THIS PT FOR HOSPICE.
[2024-04-18 21:35] VITALS: PULSE 73; RESP 20
[2024-04-18] MEDS: HYDROmorphone HCL/PF (*CRX) 50 MG in SODIUM CHLORIDE 0.9% IV 95 ML IV CONT (21:35)
[2024-04-18 22:30] VITALS: BP 114/76; PULSE 71; RESP 20; O2SAT 98
[2024-04-18 23:45] VITALS: BP 125/52; PULSE 44; RESP 12; TEMP 36.4; O2SAT 87; BMI 24.6
--- NOTE | 2024-04-18 23:46 | ADMGEN ---
This patient, Malcolm Carcamo, was admitted to [facility] S[facility] Room 320-01. Patient/family oriented to hospital policies and general routines including ID bracelet, bed and alarms, visiting hours, pain management, procedures, bathroom and other care routines, personal items, smoking policy, room service/diet, and visiting hours. Information on how to activate the Rapid Response Team has been discussed. Patient/Family are encouraged to report perceived risks to care and to ask questions if they do not understand what they are told or what they should do.
[2024-04-18 23:56] VITALS: O2SAT 87
--- NOTE | 2024-04-19 00:35 | P.HP_ITS ---
H&P: HPI History of Present Illness Date/Time: 04/19/24 00:35 Chief Complaint: Nausea vomiting Narrative: 88-year-old male with past medical history prostate cancer with metastases to the bone and advanced dementia who presented to the ER from home with nausea vomiting. Patient is bedbound and alert orient times 0 unable to move walk or perform any activities of daily living independently. His reported the a been having nausea vomiting that started around 01:00 on the night of the . The patient dementia and is usually oriented only to self and will for the most part be able to recognize her. But over the last couple of days he has been asking for his mother and for his brothers who are all . He frequently will not recognize his children. They recently moved to assisted living in December so that she could have more assistance with his care. He is dependent in all aspects of care including feeding. She reports that she has to feed him about 80% of the time in less it is a simple food that he can supervisor opening and picking. She states that he has marked tremor. In a patient was unable to craig if he was having any pain. She states that the staff at the assisted living helped him to the bathroom and then close the door so unless she specifically asks she does not know if he ends up having a bowel movement. It Is unclear when his last bowel movement was. She reports that she does not think he has been having a fever. He states that his memory has been slowly worsening. He requires assistance to stand and pivot to get to the commode. He recently developed a wound to his right great toe. She states that wound care was post a come and evaluated today. He had recent CTA is a lower extremity that demonstrated peripheral vascular disease. It sounds as if he was not a candidate for intervention for revascularization. He has been on antibiotics for the toe infection. In the ER he was noted to be in overt distress moaning and his abdomen was quite distended. The patient even with Dilaudid infusing at the time my evaluation seems quite uncomfortable with palpation of the abdomen. The ER provider had a discussion of goals of care in the patient's and children at bedside decided that they would like to proceed with She states that with his current functional status that she does not feel like he has much quality of life. She wanted to proceed with comfort based care and hospice consult. Patient was subsequently admitted to medical floor for comfort care until hospice consult could be completed. 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 in December. They have been for 69 years. They raised 6 children together. 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 He is a lifelong nonsmoker and he used to drink a couple of beers a week but has not done so in many years. Code status: DNR/DNI Surrogate decision maker: Smoking status: Never smoker Second hand tobacco smoke exposure: No Alcohol intake: former Drinks per week: 2 Substance use: never Substance use type: does not use Do You Feel Safe in your Home?: Yes Lack of Transportation: No Lack of Food: Never True Current Housing: I Have Housing Concerned About Future Housing: No Difficulty Paying Gas/Electric Bills: No Difficulty Paying for Meds: No Currently Unemployed: No Education: High School Diploma/GED Difficulty w/ Childcare or Family Care: No Living arrangements: with family Occupation/Education: retired Gender identity (if verbalized by the patient): Male Sexual Orientation (if Verbalized by the Patient): Straight or Heterosexual Spiritual care concerns: No Meds Home Medications and Allergies Home Medications ?Medication ?Instructions ?Recorded ?Confirmed ?Type calcium 500 mg (as 1 tablet PO DAILY 02/18/19 11/24/23 History carbonate)-vitamin D3 5 mcg (200 unit) tablet vitamin B complex (B 1 tablet PO DAILY #30 tabs 09/09/22 11/24/23 Rx Complex-Vitamin B12 tablet) acetaminophen 500 mg tablet 500 mg PO Q6H PRN pain #30 tabs 11/29/23 Rx aspirin 81 mg chewable tablet 81 mg PO DAILY #30 tabs 11/29/23 Rx cephalexin 500 mg capsule 500 mg PO Q6H 7 days #28 caps 11/29/23 Rx famotidine 20 mg tablet 20 mg PO DAILY #14 tabs 11/29/23 Rx potassium chloride 20 mEq 20 meq PO BID 01/24/24 History tablet,extended release(part/cryst) (Klor-Con M) citalopram 10 mg tablet See Rx Instructions .Route 02/19/24 Rx .COMPLEX #90 tabs quetiapine 25 mg tablet 25 mg PO QHS #90 tabs 04/10/24 Rx Allergies Allergy/AdvReac Type Severity Reaction Status Date / Time No Known Allergies Allergy Verified 04/18/24 17:53 Vital Signs Vital Signs - 24 hr 04/18/24 17:39 04/18/24 21:35 04/18/24 22:30 Temperature 97.7 F Pulse Rate 69 73 71 Respiratory Rate 26 H 20 20 Blood Pressure 113/66 114/76 Pulse Oximetry 96 98 Oxygen Delivery Room Air Oxygen Flow Rate 04/18/24 23:56 Temperature Pulse Rate Respiratory Rate Blood Pressure Pulse Oximetry 87 L Oxygen Delivery Nasal Cannula Oxygen Flow Rate 2 Exam Narrative: Weight 78.9 kg BMI 25 Const: Other: Acutely ill-appearing, lying flat in the bed, obtunded HENMT: Other: Mucous membranes are dry, no oral pharyngeal erythema, head is normocephalic atraumatic Eyes: Other: Pupils are constricted equally, no conjunctival pallor, no scleral icterus, evidence of lens replacements bilaterally Neck: Other: No JVD, supple Resp: Other: Coarse crackles bilaterally, mild tachypnea Cardio: Other: Bradycardic, 2+ bilateral radial pulses, no JVD GI: Other: Grossly distended, tense, tender to palpation, absent bowel sounds : Other: Incontinent of urine Skin: Other: Cool to touch, non jaundice, generalized pallor Neuro: Other: Patient moans to painful stimuli, otherwise is unresponsive Extrem: Other: Small wound with surrounding erythema to the right great toe, no overt drainage but dried serous material noted to the patient's sock Psych: Other: Unable to assess due to condition Assessment and Plan Assessment and plan (1) End of life care: Code(s): Z51.5 - Encounter for palliative care Status: Acute (2) Dementia: Qualifiers: Dementia behavioral or psychological symptom: unspecified whether behavioral, psychotic, or mood disturbance or anxiety Dementia severity: severe Dementia type: unspecified type Qualified Code(s): F03.C0 - Unspecified dementia, severe, without behavioral disturbance, psychotic disturbance, mood disturbance, and anxiety Code(s): F03.90 - Unspecified dementia, unspecified severity, without behavioral disturbance, psychotic disturbance, mood disturbance, and anxiety Status: Acute (3) Prostate cancer metastatic to bone: Code(s): C61 - Malignant neoplasm of prostate; C79.51 - Secondary malignant neoplasm of bone Status: Acute Plan Patient is admitted as comfort measures until hospice consult can be completed. The patient was uncomfortable and moaning multiple times during my evaluation. The patient had already been started on a Dilaudid drip at 1 mg an hour. The drip has been increased 1.5 mg an hour and p.r.n. pushes have been headed. Ativan is also available for signs of distress. Zofran as needed for nausea. The patient's was at bedside and plan was discussed. She feels that the patient looks much more comfortable than he did down in the ER and she is ready to proceed with hospice care. Quality If No VTE Prophylaxis Answer both mechanical and pharmacologic: Reason no mechanical VTE proph: medical contraindication (Comfort measures) Reason no pharmacologic proph: medical contraindication (Comfort measures) Hospitalist MIPS Advance Care Plan I have confirmed that the patient's Advanced Care Plan is present, code status is documented, or surrogate decision maker is listed in patient medical record.: Yes Medication Reconciliation I have utilized all available resources to obtain, update and review the patients current medications (includes all prescriptions, OTC, herbals, cannabis, and nutritional supplements).: Yes
[2024-04-19] MEDS: HYDROmorphone HCL INJ (*CRX) 1 MG/ML SYR IV PUSH (02:00)
[2024-04-19] MEDS: ONDANSETRON INJ 4 MG/2 ML VIAL IV PUSH (05:35)
[2024-04-19] MEDS: ATROPINE SULFATE 1% OPHTH SOLN 5 ML BOTTLE 1 DROP SUBLINGUAL (09:14)
[2024-04-19 11:06] VITALS: O2SAT 94
--- NOTE | 2024-04-19 11:57 | PM.DS ---
DS: Admitting Diagnosis Discharge Date 04/19 Admitting Diagnosis end of life care DS: Discharge Diagnosis Discharge Diagnosis (1) End of life care: Code(s): Z51.5 - Encounter for palliative care Status: Acute (2) Dementia: Qualifiers: Dementia behavioral or psychological symptom: unspecified whether behavioral, psychotic, or mood disturbance or anxiety Dementia severity: severe Dementia type: unspecified type Qualified Code(s): F03.C0 - Unspecified dementia, severe, without behavioral disturbance, psychotic disturbance, mood disturbance, and anxiety Code(s): F03.90 - Unspecified dementia, unspecified severity, without behavioral disturbance, psychotic disturbance, mood disturbance, and anxiety Status: Acute (3) Prostate cancer metastatic to bone: Code(s): C61 - Malignant neoplasm of prostate; C79.51 - Secondary malignant neoplasm of bone Status: Acute DS: Summary Hospital Course Hospital Course: 88-year-old male with past medical history prostate cancer with metastases to the bone and advanced dementia who presented to the ER from home with nausea vomiting. Patient is bedbound and alert orient times 0 unable to move walk or perform any activities of daily living independently. In the ER he was noted to have abdomen distended. The ER provider had a discussion of goals of care in the patient's and children at bedside decided that they would like to proceed with She states that with his current functional status that she does not feel like he has much quality of life. She wanted to proceed with comfort based care and hospice consult. Patient was subsequently admitted to medical floor for comfort care until hospice consult could be completed. Hospice accepted pt and he was discharged to hospice care today. Status at Discharge Functional status at discharge: bed bound Overall status at discharge: patient is not back to baseline Time Spent with Patient Time attestation: Total time spent providing and/or coordinating discharge services: Time spent: Greater than 30 minutes Exam Narrative: Weight 78.9 kg BMI 25 Const: Other: Acutely ill-appearing, lying flat in the bed, obtunded HENMT: Other: Mucous membranes are dry, no oral pharyngeal erythema, head is normocephalic atraumatic Eyes: Other: Pupils are constricted equally, no conjunctival pallor, no scleral icterus, evidence of lens replacements bilaterally Neck: Other: No JVD, supple Resp: Other: Coarse crackles bilaterally, mild tachypnea Cardio: Other: Bradycardic, 2+ bilateral radial pulses, no JVD GI: Other: Grossly distended, tense, tender to palpation, absent bowel sounds : Other: Incontinent of urine Skin: Other: Cool to touch, non jaundice, generalized pallor Neuro: Other: Patient moans to painful stimuli, otherwise is unresponsive Extrem: Other: Small wound with surrounding erythema to the right great toe, no overt drainage but dried serous material noted to the patient's sock Psych: Other: Unable to assess due to condition Discharge Plan Discharge Attending physician on discharge: Stephan Vitale Discharging Clinician: Yuly Carballo Patient Disposition: Hospice - Medical Facility Activity: august shower Diet: as tolerated and regular Patient Language: Indonesian Stand Alone Forms: General Discharge Information Discharge Medications: Discontinued calcium carbonate-vitamin D3 500 mg(1,250mg) -200 unit Tablet 1 tablet PO DAILY vitamin B complex [B Complex-Vitamin B12] Tablet 1 tablet PO DAILY Qty: 30 0RF cephalexin 500 mg capsule 500 mg PO Q6H 7 Days Qty: 28 0RF acetaminophen 500 mg tablet 500 mg PO Q6H PRN (Reason: pain) Qty: 30 0RF famotidine 20 mg tablet 20 mg PO DAILY Qty: 14 0RF aspirin 81 mg tablet,chewable 81 mg PO DAILY Qty: 30 0RF potassium chloride [Klor-Con M20] 20 mEq tablet,ER particles/crystals 20 meq PO BID citalopram 10 mg tablet See Rx Instructions .ROUTE .COMPLEX Qty: 90 3RF Dose Instruction: TAKE 1 TABLET BY MOUTH EVERY DAY Rx Instructions: TAKE 1 TABLET BY MOUTH EVERY DAY quetiapine 25 mg tablet 25 mg PO QHS Qty: 90 2RF Date of admission: 04/18/24 21:11 Primary Care Provider: Macho Adamson Admitting Provider: Penny Valente Attending physician on admission: Penny Valente Condition: Terminal Hospitalist MIPS Heart Failure (Exclusion) Patient has history of Heart Transplant or Left Ventricular Assistive Device?: No IF YES, STOP HERE Heart Failure (Qualifier) Patient has current or prior documentation of LVEF less than or equal to 40%, or mod/servere depressed LVSF?: No IF NO, STOP HERE
== END 2024-04-19 12:03 | disposition hospice, inpatient (51) ==
LOC: ANHED 21:32 → ANH3MEDSUR 04-19 12:00
PROVIDERS: Admitting Provider Internal Medicine; Emergency Provider Emergency Medicine; PCP Family Medicine; Visit Provider General Practice
DX: R11.2 Nausea with vomiting, unspecified (principal); R19.7 Diarrhea, unspecified; C61 Malignant neoplasm of prostate; C79.51 Secondary malignant neoplasm of bone; F03.C0 Unspecified dementia, severe, without behavioral disturbance, psychotic disturbance, mood disturbance, and anxiety; I10 Essential (primary) hypertension; I73.9 Peripheral vascular disease, unspecified; B02.29 Other postherpetic nervous system involvement; Z51.5 Encounter for palliative care; Z66 Do not resuscitate; Z85.828 Personal history of other malignant neoplasm of skin; Z74.01 Bed confinement status; Z79.899 Other long term (current) drug therapy
CPT/HCPCS: 96374; 96375; 96376; 99285; A9270; G0378; J1171; J1596; J2060; J2270; J2405

== ENCOUNTER 2024-04-19 11:00 | HOS | payer OTHER, MEDICARE, BC, SELFPAY ==
[2024-04-19 12:21] VITALS: BMI 24.6
--- NOTE | 2024-04-19 12:31 | P.HP_ITS ---
H&P: HPI History of Present Illness Date/Time: 04/19/24 12:31 Chief Complaint: Uncontrolled pain Narrative: 88 gentleman with history of prostate cancer metastatic to bone was in his usual state of health at [facility] where he has lived since December of 2019 he is wheelchair-bound. He had a cinnamon roll yesterday morning. Yesterday noon he was vomited complained of generalized pain. Was increasingly confused and agitated. He was brought the emergency department for evaluation was pursued due to family he was admitted on hydromorphone drip 1 milligram/hour which overnight was increased 1.5 mg he has remained comfortable on that dose. Prior to admission he was alert and oriented to person place wheelchair bound and continent of bowel and and sometimes continent of bladder. He did wear depends. 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 They have been for 69 years. They raised 6 children together. 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 He is a lifelong nonsmoker and he used to drink a couple of beers a week but has not done so in many years. Code status: DNR/DNI Surrogate decision maker: Smoking status: Never smoker Second hand tobacco smoke exposure: No Alcohol intake: former Drinks per week: 2 Substance use: never Substance use type: does not use Do You Feel Safe in your Home?: Yes Lack of Transportation: No Lack of Food: Never True Current Housing: I Have Housing Concerned About Future Housing: No Difficulty Paying Gas/Electric Bills: No Difficulty Paying for Meds: No Currently Unemployed: No Education: High School Diploma/GED Difficulty w/ Childcare or Family Care: No Living arrangements: with family Occupation/Education: retired Gender identity (if verbalized by the patient): Male Sexual Orientation (if Verbalized by the Patient): Straight or Heterosexual Spiritual care concerns: No Meds Home Medications and Allergies Allergies Allergy/AdvReac Type Severity Reaction Status Date / Time No Known Allergies Allergy Verified 04/18/24 17:53 Vital Signs Vital Signs - 24 hr 04/19/24 12:27 Oxygen Delivery Nasal Cannula Oxygen Flow Rate 2 Exam Narrative: Elderly gentleman appears flushed. Is unresponsive to verbal or tactile stimuli. Pharyngeal mucosa intact and pink. Neck without JVD. Chest Coarse BS, NL effort with inermittent apneas. Heart NL S1/2 RR no murmurs. ABD protuberant and firm with minimal BS. Extr no edema. MS without gross deformity to visual inspection. Neurologic cranial nerves symmetric to visual inspection. Assessment and Plan Assessment and plan (1) Hospice care: Code(s): Z51.5 - Encounter for palliative care Status: Acute Assessment and Plan: * Inpatient hospice criteria due to requiring continuous IV hydromorphone for analgesia. * P.r.n. palliative regimen ordered. * 04/18/2024 discussed care and prognosis with at bedside. (2) Prostate cancer metastatic to bone: Code(s): C61 - Malignant neoplasm of prostate; C79.51 - Secondary malignant neoplasm of bone Status: Acute
[2024-04-19] MEDS: HYDROmorphone HCL/PF (*CRX) 50 MG in SODIUM CHLORIDE 0.9% IV 95 ML IV CONT (13:38)
[2024-04-19] MEDS: GLYCOPYRROLATE INJ (*SP) 0.2 MG/ML VIAL 0.1 MG IV PUSH ×2 (13:49→20:04)
[2024-04-19 18:51] VITALS: BP 120/60; PULSE 87; RESP 20; TEMP 36.4; O2SAT 97
[2024-04-19 20:00] VITALS: O2SAT 89
[2024-04-20] MEDS: LORazepam INJ (*CRX) 2 MG/ML VIAL 1 MG IV PUSH (01:30)
[2024-04-20] MEDS: GLYCOPYRROLATE INJ (*SP) 0.2 MG/ML VIAL 0.1 MG IV PUSH ×2 (01:31→09:23)
[2024-04-20] MEDS: HYDROmorphone HCL INJ (*CRX) 1 MG/ML SYR 2 MG IV PUSH ×2 (04:56→10:54)
[2024-04-20 08:00] VITALS: BP 128/83; PULSE 110; RESP 5; TEMP 39.2; O2SAT 94
[2024-04-20] MEDS: HYDROmorphone HCL/PF (*CRX) 50 MG in SODIUM CHLORIDE 0.9% IV 95 ML 6 MG IV CONT (12:41)
--- NOTE | 2024-04-20 15:34 | P.PNIM_ITS ---
Progress Note: A&P Assessment and Plan (1) Hospice care: Code(s): Z51.5 - Encounter for palliative care Status: Acute Assessment and Plan: * Inpatient hospice criteria due to requiring continuous IV hydromorphone for analgesia. * P.r.n. palliative regimen ordered. * 04/18/2024 discussed care and prognosis with at bedside. * 04/19/2024 after doses change in for need for bolus doses of hydromorphone and lorazepam. Discussed with and multiple family members at bedside. (2) Prostate cancer metastatic to bone: Code(s): C61 - Malignant neoplasm of prostate; C79.51 - Secondary malignant neoplasm of bone Status: Acute Subjective Date/time seen: 04/20/24 15:34 Interval history: Was uncomfortable earlier today. Had moaning and fidgeting and grimacing. Since hydromorphone drip was increased from he has been doing much better. Occasional myoclonic jerk. Family at bedside. Review of Systems Review of Systems: ROS unobtainable: Yes unobtainable due to medical condition Exam Narrative: Elderly gentleman appears flushed. Is unresponsive to verbal or tactile stimuli. Pharyngeal mucosa intact and pink. Neck without JVD. Chest Coarse BS, NL effort with inermittent apneas. Heart NL S1/2 RR no murmurs. ABD protuberant and firm with minimal BS. Extr no edema. MS without gross deformity to visual inspection. Neurologic cranial nerves symmetric to visual inspection. Objective Data Vital Signs Vital Signs: Vital Signs - 24 hr 04/19/24 18:51 04/19/24 20:00 04/20/24 08:00 Temperature 97.5 F L 102.6 F H Pulse Rate 87 110 H Respiratory Rate 20 5 L Blood Pressure 120/60 128/83 Pulse Oximetry 97 89 L 94 Oxygen Delivery Nasal Cannula Oxygen Flow Rate 2 04/20/24 08:14 Temperature Pulse Rate Respiratory Rate Blood Pressure Pulse Oximetry Oxygen Delivery Nasal Cannula Oxygen Flow Rate 2 Meds/Results Medications: Active Medications Generic Name Dose Route Start Last Admin Trade Name Freq PRN Reason Stop Dose Admin Acetaminophen 650 mg 04/19/24 21:26 Acetaminophen 650 Mg Suppository RECTAL Q6H PRN Fever >101 Artificial Tears 1 - 2 drop 04/19/24 12:35 Artificial Tears Ophth Soln 15 Ml Bottle EACH EYE QID PRN Dry Eye(s) Bisacodyl 10 mg 04/19/24 12:35 Bisacodyl 10 Mg Suppository RECTAL QAM PRN Constipation Glycopyrrolate 0.1 mg 04/19/24 12:34 04/20/24 09:23 Glycopyrrolate Inj (*Sp) 0.2 Mg/Ml Vial IV PUSH 0.1 mg Q4H PRN Administration Secretions Hydromorphone HCl 3 mg 04/20/24 11:52 Hydromorphone Hcl Inj (*Crx) 1 Mg/Ml Syr IV PUSH Q2H PRN PAIN/SOB Hydromorphone HCl 50 mg/ 100 mls @ 6 mls/hr 04/20/24 11:50 04/20/24 12:41 Sodium Chloride IV CONT 3 mg/hr .[id number] MARISSA 6 mls/hr Administration 3 MG/HR Lorazepam 1 mg 04/19/24 12:34 04/20/24 01:30 Lorazepam Inj (*Crx) 2 Mg/Ml Vial IV PUSH 1 mg Q4H PRN Administration Restlessness Prochlorperazine Edisylate 10 mg 04/19/24 12:34 Prochlorperazine Edisylate 10 Mg/2 Ml Vial IV PUSH Q6H PRN Nausea And Vomiting
[2024-04-20 15:55] VITALS: TEMP 37.9
[2024-04-21] MEDS: HYDROmorphone HCL/PF (*CRX) 50 MG in SODIUM CHLORIDE 0.9% IV 95 ML 6 MG IV CONT (04:04)
[2024-04-21 08:00] VITALS: BP 82/72; PULSE 120; RESP 12; RESP 13; TEMP 37.5; O2SAT 91
--- NOTE | 2024-04-21 09:29 | P.PNIM_ITS ---
Progress Note: A&P Assessment and Plan (1) Hospice care: Code(s): Z51.5 - Encounter for palliative care Status: Acute Assessment and Plan: * Inpatient hospice criteria due to requiring continuous IV hydromorphone for analgesia. * P.r.n. palliative regimen ordered. * 04/18/2024 discussed care and prognosis with at bedside. * 04/19/2024 after doses change in for need for bolus doses of hydromorphone and lorazepam. Discussed with and multiple family members at bedside. * 04/20/2024 continue current regimen as decline continues with fevers and prolonged apneas. (2) Prostate cancer metastatic to bone: Code(s): C61 - Malignant neoplasm of prostate; C79.51 - Secondary malignant neoplasm of bone Status: Acute Subjective Date/time seen: 04/21/24 09:29 Interval history: Comfortable overnight. No further myoclonus. Family at bedside. Review of Systems Review of Systems: ROS unobtainable: Yes unobtainable due to medical condition Exam Narrative: Elderly gentleman appears flushed. Is unresponsive to verbal or tactile stimuli. Pharyngeal mucosa intact and pink. Neck without JVD. Chest Coarse BS, NL effort with inermittent apneas. Heart NL S1/2 RR no murmurs. ABD protuberant and firm with minimal BS. Extr no edema. MS without gross deformity to visual inspection. Neurologic cranial nerves symmetric to visual inspection. Objective Data Vital Signs Vital Signs: Vital Signs - 24 hr 04/20/24 15:55 04/20/24 20:00 04/21/24 08:00 Temperature 100.2 F H Respiratory Rate 12 Pulse Oximetry 91 Oxygen Delivery Nasal Cannula Nasal Cannula Oxygen Flow Rate 2 2 Intake/Output Intake/Output: Intake & Output 04/18/24 04/19/24 04/20/24 04/21/24 23:59 23:59 23:59 23:59 Intake Total 92.3 Balance 92.3 Meds/Results Medications: Active Medications Generic Name Dose Route Start Last Admin Trade Name Freq PRN Reason Stop Dose Admin Acetaminophen 650 mg 04/19/24 21:26 Acetaminophen 650 Mg Suppository RECTAL Q6H PRN Fever >101 Artificial Tears 1 - 2 drop 04/19/24 12:35 Artificial Tears Ophth Soln 15 Ml Bottle EACH EYE QID PRN Dry Eye(s) Bisacodyl 10 mg 04/19/24 12:35 Bisacodyl 10 Mg Suppository RECTAL QAM PRN Constipation Glycopyrrolate 0.1 mg 04/19/24 12:34 04/20/24 09:23 Glycopyrrolate Inj (*Sp) 0.2 Mg/Ml Vial IV PUSH 0.1 mg Q4H PRN Administration Secretions Hydromorphone HCl 3 mg 04/20/24 11:52 Hydromorphone Hcl Inj (*Crx) 1 Mg/Ml Syr IV PUSH Q2H PRN PAIN/SOB Hydromorphone HCl 50 mg/ 100 mls @ 6 mls/hr 04/20/24 11:50 04/21/24 04:04 Sodium Chloride IV CONT 3 mg/hr .[id number] MARISSA 6 mls/hr Administration 3 MG/HR Lorazepam 1 mg 04/19/24 12:34 04/20/24 01:30 Lorazepam Inj (*Crx) 2 Mg/Ml Vial IV PUSH 1 mg Q4H PRN Administration Restlessness Prochlorperazine Edisylate 10 mg 04/19/24 12:34 Prochlorperazine Edisylate 10 Mg/2 Ml Vial IV PUSH Q6H PRN Nausea And Vomiting
--- NOTE | 2024-04-22 17:57 | PM.DDS ---
Discharge Summary Probable Cause of Probable Cause of : Metastatic Prostate Cancer Summary Hospital Course: Admitted to inpatient hospice service due to uncontrolled pain. Medications were titrated to comfort. Mr. Carcamo peacefully.
== END 2024-04-21 12:38 | disposition expired | DRG 951 ==
PROVIDERS: Admitting Provider Internal Medicine; PCP Family Medicine; Visit Provider Internal Medicine
DX: Z51.5 Encounter for palliative care (principal); C79.51 Secondary malignant neoplasm of bone; C61 Malignant neoplasm of prostate; F03.90 Unspecified dementia, unspecified severity, without behavioral disturbance, psychotic disturbance, mood disturbance, and anxiety; I73.9 Peripheral vascular disease, unspecified; I10 Essential (primary) hypertension; Z85.828 Personal history of other malignant neoplasm of skin; Z74.01 Bed confinement status; Z66 Do not resuscitate; Z79.82 Long term (current) use of aspirin
CPT/HCPCS: A9270; J1171; J1596; J2060